=== PATIENT | female | born 1950 | race Caucasian/White ===

== ENCOUNTER → 2017-12-10 | Day surgery (SDC) | payer MEDICARE, BC ==
[~2017-12-10] MED LIST: Propofol 200 MG/20 ML SDV IV ONE
[2017-12-10] MEDS: Lactated Ringers 1,000 ML IV SCH (08:57)
--- NOTE | 2017-12-13 09:40 | OR ---
DATE OF OPERATION: 12/10/2017 PREOPERATIVE DIAGNOSIS: 1. NAUSEA AND VOMITING. 2. DIARRHEA. POSTOPERATIVE DIAGNOSIS: 1. NAUSEA AND VOMITING. 2. DIARRHEA. SURGEON: Harpreet Gilliam MD PROCEDURE: 1. EGD WITH VERNON AND POLYP REMOVAL X2. 2. FULL-LENGTH COLONOSCOPY WITH RANDOM BIOPSIES X5, POLYP REMOVAL X1. ANESTHESIA: SUSHI CHEF due to dementia. COMPLICATIONS: None. SPECIMEN: 1. Fundal polyps x2. 2. Antral VERNON. 3. Random colon biopsies x5. 4. Tubular adenoma, hepatic flexure. FINDINGS: 1. Essentially normal full-length EGD. 2. Gastric polyposis, mild, adenomatous in nature. 3. Full-length colonoscopy. 4. Tubular adenoma x1. 5. No signs of colitis or etiology of the patient's symptoms. RECOMMENDATIONS: Medical followup pending path reports. INDICATIONS: The patient has been having ongoing issues with loose stools, altered bowel habits, and some occasional nausea. We elected to proceed with upper and lower endoscopy. DESCRIPTION OF PROCEDURE: The patient was prepped and draped, placed in the left lateral decubitus position. A lubricated Olympus gastroscope was inserted over a bit, advanced to the cricopharyngeus area, and easily intubated into the esophagus. Esophageal lining was benign in its entire course. The Z-line was crisp and sharp around 39 cm. No distal esophagitis, stricturing, ulceration, or Moreno's changes seen. Scope advanced into the stomach through the pylorus and into the second portion of duodenum. This and the duodenal bulb were benign. The scope was brought back into the stomach and retroflexed. The upper fundus and cardia were unremarkable. In the mid portion of the fundus, the patient does have adenomatous polyps, multiple, probably a total of 10, typical in appearance, and 2 of them removed in the usual fashion without complication. Upon straightening, the rest of the fundus and antrum was evaluated. There were no signs of any peptic ulcer disease, worrisome masses, lesions or otherwise. VERNON test was obtained. Air was suctioned. Scope was removed without complication. A lubricated Olympus colonoscope was then inserted and with ease advanced to the cecum. We were able to directly visualize the ileocecal valve and the appendiceal orifice. The bowel prep was fine. Upon withdrawal, the cecum and the ascending colon were benign. There was a tubular adenoma, flat and sessile in the hepatic flexure region, removed with 3 forceps biopsies in its entirety. The rest of the colon showed no signs of any polyps, mass, ulceration, bleeding sites, or vascular abnormalities or signs of colitis. There were no diverticula. We did do random biopsies from the cecum to the rectum, totalling number 5. Retroflexion of the scope in the rectum showed no perianal lesions other than skin tags. Air was suctioned. Scope was removed without complication. JORY/TERENCE /[id number]
== END ==
LOC: CC.SDS 08:41
PROVIDERS: ATTEND Family Medicine
DX: R11.2 Nausea with vomiting, unspecified (principal); R19.7 Diarrhea, unspecified; D12.3 Benign neoplasm of transverse colon; K31.7 Polyp of stomach and duodenum; J30.9 Allergic rhinitis, unspecified; G30.9 Alzheimer's disease, unspecified; F02.80 Dementia in other diseases classified elsewhere, unspecified severity, without behavioral disturbance, psychotic disturbance, mood disturbance, and anxiety; E03.9 Hypothyroidism, unspecified; M54.16 Radiculopathy, lumbar region; L93.0 Discoid lupus erythematosus; Z79.899 Other long term (current) drug therapy
CPT/HCPCS: 87081; J2704; J7120

== ENCOUNTER 2018-04-21 15:28 | Observation (INO) | payer MEDICARE, BC ==
[2018-04-21] MEDS ORDERED: Ondansetron 4 MG Tab.DIS PO PRN (16:48)
[2018-04-21] MEDS ORDERED: Temazepam 15 MG Cap PO PRN (16:48)
[2018-04-21] MEDS ORDERED: Pantoprazole 40 MG Vial IVPUSH SCH (17:00)
[2018-04-21 17:16] LABS: CHLORIDE,CL 105 mEq/L (98-106); SODIUM,NA 141 mEq/L (136-145)
[2018-04-21] MEDS: Sodium Chloride 0.9% 1,000 ML IV SCH (17:26)
[2018-04-21] MEDS: cefTRIAXone 1 GM Vial IVPUSH SCH (17:27)
[2018-04-21] MEDS: Enoxaparin 30 MG/0.3 ML Syringe SUBCUT SCH (17:33)
[2018-04-21] MEDS: Acetaminophen 325 MG Tab PO PRN (19:38)
[2018-04-21] MEDS: Pantoprazole 40 MG Vial IVPUSH SCH (19:38)
[2018-04-21] MEDS: Memantine 10 MG Tab PO SCH (19:39)
[2018-04-22] MEDS ORDERED: Levothyroxine 100 MCG Tab PO SCH (08:00)
[2018-04-22] MEDS: Pantoprazole 40 MG Vial IVPUSH SCH ×2 (08:04→19:44)
[2018-04-22] MEDS: Sodium Chloride 0.9% 1,000 ML IV SCH ×2 (08:52→19:47)
[2018-04-22] MEDS ORDERED: DONEPEZIL 10 MG PO ONE (09:42)
[2018-04-22] MEDS: Memantine 10 MG Tab PO SCH ×2 (09:45→19:45)
[2018-04-22] MEDS: Acetaminophen 325 MG Tab PO PRN ×2 (10:33→14:30)
[2018-04-22] MEDS: Ibuprofen 200 MG Tab PO PRN ×2 (11:41→18:26)
--- NOTE | 2018-04-22 13:18 | PCM.PN ---
- General Info Date of Service: 04/22/18 Admission Dx/Problem (Free Text): Pyelonephritis Functional Status: Reports: Pain Controlled, Tolerating Diet, Ambulating - Review of Systems General: Reports: Other (Patient is disoriented to place and time. Denies any concerns but question if comprehends all questions asked. Smiles easily, cooperative. No pain. ROS essentially unobtainable) - Patient Data Vitals - Most Recent: Last Vital Signs Temp 100.7 F H 04/22/18 12:41 Pulse 62 04/22/18 07:44 Resp 20 04/22/18 07:44 BP 127/63 04/22/18 07:44 Pulse Ox 98 04/22/18 07:44 Weight - Most Recent: 161 lb 8 oz I&O - Last 24 Hours: Intake & Output 04/21/18 04/22/18 04/22/18 22:59 06:59 14:59 Intake Total 1000 Balance 1000 Lab Results Last 24 Hours: Laboratory Results - last 24 hr 04/21/18 04/21/18 04/21/18 Range/Units 16:27 16:27 17:38 WBC 4.7 L (5.0-10.0) 10^3/uL RBC 4.01 (4.00-5.50) 10^6/uL Hgb 12.1 (12.0-16.0) g/dL Hct 36.6 L (37.0-47.0) % MCV 91.3 (82.0-94.0) fL MCH 30.2 (27.0-32.0) pg MCHC 33.1 (33.0-38.0) g/dL RDW Coeff of Malini 11.5 (11.0-15.0) % Plt Count 181 (150-400) 10^3/uL Neut % (Auto) 64.9 (35-85) % Lymph % (Auto) 25.6 (10-55) % [place] % (Auto) 6.9 (0-16) % Eos % (Auto) 2.6 (0-5) % Baso % (Auto) 0 (0-3) % Neut # (Auto) 3.02 (1.80-7.00) 10^3/uL Lymph # (Auto) 1.19 (1.00-4.80) 10^3/uL [place] # (Auto) 0.32 (0.00-0.80) 10^3/uL Eos # (Auto) 0.12 (0.00-0.45) 10^3/uL Baso # (Auto) 0.00 10^3/uL Sodium 141 (136-145) mEq/L Potassium 4.2 (3.5-5.0) mEq/L Chloride 105 (98-106) mEq/L Carbon Dioxide 27 (21-32) mmol/L BUN 15 (7-18) mg/dL Creatinine 0.9 (0.6-1.0) mg/dL Est Cr Clr Drug Dosing 62.86 mL/min Estimated GFR (MDRD) > 60 (>=60) mL/min Glucose 94 (75-99) mg/dL Calcium 8.1 L (8.4-10.1) mg/dL Total Bilirubin 0.2 (0.0-1.0) mg/dL AST 14 L (15-37) U/L ALT 23 (12-78) U/L Alkaline Phosphatase 112 (46-116) U/L C-Reactive Protein 0.2 (0.2-0.8) mg/dL Total Protein 6.8 (6.4-8.2) g/dL Albumin 3.1 L (3.4-5.0) g/dL TSH, Ultra Sensitive 0.55 (0.36-5.60) uIU/mL Urine Color Yellow (YELLOW) Urine Appearance Clear (CLEAR) Urine pH 6.0 (4.5-8.0) Ur Specific [place] 1.010 (1.003-1.020) Urine Protein Negative (NEGATIVE) mg/dL Urine Glucose (UA) Negative (NEGATIVE) mg/dL Urine Ketones Negative (NEGATIVE) mg/dL Urine Occult Blood Negative (NEGATIVE) Urine Nitrite Negative (NEGATIVE) Urine Bilirubin Negative (NEGATIVE) Urine Urobilinogen 0.2 (0.2-1.0) EU/dL Ur Leukocyte Esterase Negative (NEGATIVE) Urine RBC Not seen (0-5) /HPF Urine WBC 0-5 (0-5) /HPF Ur Squamous Epith Cells Occasional H (NOT SEEN) /HPF Urine Bacteria Occasional H (NOT SEEN) /HPF José Results Last 24 Hours: Microbiology 04/21/18 17:38 Urine Culture - Preliminary Urine, Bladder Med Orders - Current: Current Medications Acetaminophen (Tylenol) 650 mg PO Q4H PRN PRN Reason: Pain (Mild 1-3)/fever Last Admin: 04/22/18 10:33 Dose: 650 mg Ceftriaxone Sodium (Rocephin) 1 gm IVPUSH Q24H [facility] Last Admin: 04/21/18 17:27 Dose: 1 gm Enoxaparin Sodium (Lovenox) 30 mg SUBCUT Q24H [facility] Last Admin: 04/21/18 17:33 Dose: 30 mg Sodium Chloride (Normal Saline) 1,000 mls @ 75 mls/hr IV ASDIRECTED [facility] Last Admin: 04/22/18 08:52 Dose: 75 mls/hr Ibuprofen (Motrin) 400 mg PO Q6H PRN PRN Reason: Pain/Fever Last Admin: 04/22/18 11:41 Dose: 400 mg Levothyroxine Sodium (Synthroid) 100 mcg PO DAILY [facility] Last Admin: 04/22/18 09:28 Dose: 100 mcg Memantine (Namenda) 10 mg PO BID [facility] Last Admin: 04/22/18 09:45 Dose: 10 mg Ondansetron HCl (Zofran Odt) 4 mg PO Q4H PRN PRN Reason: nausea, able to take PO Pantoprazole Sodium (Protonix Iv) 40 mg IVPUSH DAILY@0800,2000 [facility] Last Admin: 04/22/18 08:04 Dose: 40 mg Temazepam (Restoril) 15 mg PO BEDTIME PRN PRN Reason: Sleep Last Admin: 04/22/18 00:06 Dose: 15 mg Discontinued Medications Ptom Donepezil (10mg) 10 mg PO ONETIME ONE Stop: 04/22/18 09:43 Last Admin: 04/22/18 09:45 Dose: 10 mg Pantoprazole Sodium (Protonix Iv) 40 mg IVPUSH Q12H [facility] Last Admin: 04/21/18 17:30 Dose: 40 mg - Exam General: Alert, Oriented (person only) HEENT: Mucous Membr. Moist/[place] Neck: Supple Lungs: Clear to Auscultation, Normal Respiratory Effort Cardiovascular: Regular Rate, Regular Rhythm GI/Abdominal Exam: Normal Bowel Sounds, Soft, Non-Tender Extremities: Normal Inspection, No Pedal Edema Skin: Warm, Dry Neurological: No New Focal Deficit - Problem List & Annotations (1) Pyelonephritis SNOMED Code(s): 54119712 Code(s): N12 - TUBULO-INTERSTITIAL NEPHRITIS, NOT SPCF ACUTE OR CHRONIC Status: Ruled-out Priority: High Current Visit: Yes (2) Fever of unknown origin SNOMED Code(s): 0481685 Code(s): R50.9 - FEVER, UNSPECIFIED Status: Acute Priority: High Current Visit: Yes - Problem List Review Problem List Initiated/Reviewed/Updated: Yes - My Orders Last 24 Hours: My Active Orders 04/22/18 11:30 Ibuprofen [Motrin] 400 mg PO Q6H PRN - Assessment Assessment:: Pyelonephritis- ruled out Fever of unknown origin - Plan Plan:: Patient is resting comfortably this am. Denies any pain, nausea, shortness of breath or any concern but she is disoriented to person and place and question comprehension of all questions asked. She had a temp of 100 yesterday, low grade today. UA and labs essentially all negative on admit. She is eating well. Lung sounds are clear. Abdomen is nontender. Will repeat labs in am. IV fluids. If labs are all negative, may be discharged home if status unchanged.
[2018-04-22] MEDS: Enoxaparin 30 MG/0.3 ML Syringe SUBCUT SCH (17:15)
[2018-04-22] MEDS: cefTRIAXone 1 GM Vial IVPUSH SCH (17:15)
[2018-04-23] MEDS ORDERED: Levothyroxine 100 MCG Tab**OWN MED PO SCH (07:00)
[2018-04-23 07:29] LABS: CHLORIDE,CL 110 mEq/L (98-106); SODIUM,NA 145 mEq/L (136-145)
[2018-04-23] MEDS: Memantine 10 MG Tab PO SCH (07:38)
[2018-04-23] MEDS: Pantoprazole 40 MG Vial IVPUSH SCH (07:39)
--- NOTE | 2018-04-23 11:00 | PCM.DCSUM1 ---
Discharge Summary - Hospital Course HPI Initial Comments: This patient is a 67 year old female that was admitted to the hospital for fever of unknown origin. Patient has been fever free for 24 hours. The patient denies any complaints. She is alert. She is oriented to place and self, but not time. But this is her baseline norm. The patient denies cutler,dizziness, n, v, d, f , cp, soa, abd pain. She reports she has been eating and drinking well. The patient reports she is ready to go home. The patient reports her is at home and takes good care of her. office services assistant has seen the patient and discussed possible group home with the . The patient has refused group home care for the patient. Therefore, I will discharge the patient home. Her labs are unremarkable, she is baseline, ambulating without difficulty, eating, drinking, and has no complaints. Stable discharge. Modified La[place]ano Scale: No Symptoms at All Modified [place] Scale Score: 0 - Discharge Data Discharge Date: 04/23/18 Discharge Disposition: Home, Self-Care 01 Condition: Good - Patient Summary/Data Consults: Consultations 04/21/18 16:48 Consult to Case Management/Business Support [CONS] Routine - Patient Instructions Diet: Usual Diet as Tolerated Activity: As Tolerated Driving: Do Not Drive Showering/Bathing: May Shower Notify Provider of: Fever, Nausea and/or Vomiting - Discharge Plan *PRESCRIPTION DRUG MONITORING PROGRAM REVIEWED*: No *COPY OF PRESCRIPTION DRUG MONITORING REPORT IN PATIENT ELVIN: No Prescriptions/Med Rec: Colestipol [Colestipol HCl] 1 gm PO BID #60 tablet Donepezil HCl 10 mg PO QPM #30 tablet Home Medications: Home Meds Gluc HCl/Csa/Isabel Hy/Hyalur Ac [Glucosamine Chondroitin] 1 each PO BID 12/09/17 [History] Ibuprofen [Advil] 600 mg PO Q6H PRN 12/09/17 [History] Levothyroxine Sodium [Levoxyl] 100 mcg PO DAILY 12/09/17 [History] Meclizine HCl 25 mg PO Q8H PRN 12/09/17 [History] Multivitamin [Daily Leonor] 1 each PO DAILY 12/09/17 [History] SUMAtriptan succinate [Sumatriptan Succinate] 50 mg PO ASDIRECTED PRN 12/09/17 [ History] Cholestyramine/Aspartame [Cholestyramine Light Powder] 1 scoop PO DAILY [History] Colestipol HCl 1 gm PO BID 04/21/18 [History] Ondansetron [Zofran] 4 mg PO Q8H PRN 04/21/18 [History] Pantoprazole Sodium 40 mg PO DAILY 04/21/18 [History] Colestipol [Colestipol HCl] 1 gm PO BID #60 tablet 04/23/18 [Rx] Donepezil HCl 10 mg PO QPM #30 tablet 04/23/18 [Rx] Oxygen Therapy Mode: Room Air Patient Handouts: Fever, Adult, [id number] Referrals: Harpreet Gilliam MD [Primary Care Provider] - - Discharge Summary/Plan Comment DC Time >30 min.: No - General Info Date of Service: 04/23/18 Functional Status: Reports: Pain Controlled, Tolerating Diet, Ambulating, Urinating - Review of Systems General: Reports: No Symptoms HEENT: Reports: No Symptoms Pulmonary: Reports: No Symptoms Cardiovascular: Reports: No Symptoms Gastrointestinal: Reports: No Symptoms Genitourinary: Reports: No Symptoms Musculoskeletal: Reports: No Symptoms Skin: Reports: No Symptoms Neurological: Reports: No Symptoms Psychiatric: Reports: No Symptoms - Patient Data Vitals - Most Recent: Last Vital Signs Temp 98.0 F 04/23/18 07:56 Pulse 64 04/23/18 07:56 Resp 18 04/23/18 07:56 BP 149/67 H 04/23/18 07:56 Pulse Ox 99 04/23/18 07:56 Weight - Most Recent: 161 lb 8 oz I&O - Last 24 hours: Intake & Output 04/22/18 04/23/18 04/23/18 22:59 06:59 14:59 Intake Total 819 Balance 819 Lab Results - Last 24 hrs: Laboratory Results - last 24 hr 04/23/18 04/23/18 Range/Units 06:50 06:50 WBC 3.6 L (5.0-10.0) 10^3/uL RBC 3.75 L (4.00-5.50) 10^6/uL Hgb 11.4 L (12.0-16.0) g/dL Hct 34.1 L (37.0-47.0) % MCV 90.9 (82.0-94.0) fL MCH 30.4 (27.0-32.0) pg MCHC 33.4 (33.0-38.0) g/dL RDW Coeff of Malini 11.4 (11.0-15.0) % Plt Count 172 (150-400) 10^3/uL Neut % (Auto) 57.8 (35-85) % Lymph % (Auto) 31.1 (10-55) % [place] % (Auto) 6.1 (0-16) % Eos % (Auto) 4.7 (0-5) % Baso % (Auto) 0.3 (0-3) % Neut # (Auto) 2.08 (1.80-7.00) 10^3/uL Lymph # (Auto) 1.12 (1.00-4.80) 10^3/uL [place] # (Auto) 0.22 (0.00-0.80) 10^3/uL Eos # (Auto) 0.17 (0.00-0.45) 10^3/uL Baso # (Auto) 0.01 10^3/uL Sodium 145 (136-145) mEq/L Potassium 4.2 (3.5-5.0) mEq/L Chloride 110 H (98-106) mEq/L Carbon Dioxide 26 (21-32) mmol/L BUN 8 (7-18) mg/dL Creatinine 0.7 (0.6-1.0) mg/dL Est Cr Clr Drug Dosing 80.83 mL/min Estimated GFR (MDRD) > 60 (>=60) mL/min Glucose 93 (75-99) mg/dL Calcium 8.1 L (8.4-10.1) mg/dL DIVYA Results - Last 24 hrs: Microbiology 04/21/18 17:38 Urine Culture - Final Urine, Bladder 04/21/18 16:30 Aerobic Blood Culture - Preliminary Blood - Venous - Lab Draw NO GROWTH AFTER 1 DAY Anaerobic Blood Culture - Preliminary NO GROWTH AFTER 1 DAY 04/21/18 16:27 Aerobic Blood Culture - Preliminary Blood - Venous NO GROWTH AFTER 1 DAY Anaerobic Blood Culture - Preliminary NO GROWTH AFTER 1 DAY Med Orders - Current: Current Medications Acetaminophen (Tylenol) 650 mg PO Q4H PRN PRN Reason: Pain (Mild 1-3)/fever Last Admin: 04/22/18 14:30 Dose: 650 mg Ceftriaxone Sodium (Rocephin) 1 gm IVPUSH Q24H [facility] Last Admin: 04/22/18 17:15 Dose: 1 gm Enoxaparin Sodium (Lovenox) 30 mg SUBCUT Q24H [facility] Last Admin: 04/22/18 17:15 Dose: 30 mg Sodium Chloride (Normal Saline) 1,000 mls @ 75 mls/hr IV ASDIRECTED [facility] Last Admin: 04/22/18 19:47 Dose: 75 mls/hr Ibuprofen (Motrin) 400 mg PO Q6H PRN PRN Reason: Pain/Fever Last Admin: 04/22/18 18:26 Dose: 400 mg Levothyroxine Sodium (Synthroid) 100 mcg PO DAILY@0700 [facility] Last Admin: 04/23/18 06:24 Dose: 100 mcg Memantine (Namenda) 10 mg PO BID [facility] Last Admin: 04/23/18 07:38 Dose: 10 mg Ondansetron HCl (Zofran Odt) 4 mg PO Q4H PRN PRN Reason: nausea, able to take PO Pantoprazole Sodium (Protonix Iv) 40 mg IVPUSH DAILY@0800,2000 [facility] Last Admin: 04/23/18 07:39 Dose: 40 mg Temazepam (Restoril) 15 mg PO BEDTIME PRN PRN Reason: Sleep Last Admin: 04/22/18 00:06 Dose: 15 mg Discontinued Medications Levothyroxine Sodium (Synthroid) 100 mcg PO DAILY [facility] Last Admin: 04/22/18 09:28 Dose: 100 mcg Ptom Donepezil (10mg) 10 mg PO ONETIME ONE Stop: 04/22/18 09:43 Last Admin: 04/22/18 09:45 Dose: 10 mg Pantoprazole Sodium (Protonix Iv) 40 mg IVPUSH Q12H [facility] Last Admin: 04/21/18 17:30 Dose: 40 mg - Exam General: Reports: Alert, Cooperative, No Acute Distress Neck: Reports: Supple Lungs: Reports: Clear to Auscultation, Normal Respiratory Effort Cardiovascular: Reports: Regular Rate, Regular Rhythm GI/Abdominal Exam: Normal Bowel Sounds, Soft, Non-Tender, No Organomegaly, No Distention, No Abnormal Bruit, No Mass, Pelvis Stable (Female) Exam: Deferred Rectal (Female) Exam: Deferred Back Exam: Reports: Normal Inspection, Full Range of Motion Extremities: Normal Inspection, Normal Range of Motion, Non-Tender, No Pedal Edema, Normal Capillary Refill Skin: Reports: Warm, Dry, Intact Neurological: Reports: No New Focal Deficit Psy/Mental Status: Reports: Alert, Normal Affect, Normal Mood
== END 2018-04-23 13:50 | disposition home or self-care (01) ==
LOC: UNDOADMOB 15:28 → CC.MS 15:28
PROVIDERS: ADMIT Family Medicine; ATTEND Family Medicine
DX: R50.9 Fever, unspecified (principal); G30.9 Alzheimer's disease, unspecified; F02.80 Dementia in other diseases classified elsewhere, unspecified severity, without behavioral disturbance, psychotic disturbance, mood disturbance, and anxiety; E03.9 Hypothyroidism, unspecified; M32.9 Systemic lupus erythematosus, unspecified; Z79.890 Hormone replacement therapy; Z79.899 Other long term (current) drug therapy
CPT/HCPCS: 36415; 71046; 80048; 80053; 81001; 84443; 85025; 86140; 87040; 87086; 96361; 96372; 96374; 96375; 96376; A9270-GY; C9113; G0378; J0696; J1650; J7030

== ENCOUNTER 2018-05-25 14:05 | Inpatient (IN) | payer MEDICARE, BC ==
[2018-05-25 14:40] LABS: CHLORIDE,CL 102 mEq/L (98-106); SODIUM,NA 140 mEq/L (136-145)
[2018-05-25] MEDS ORDERED: Ondansetron 4 MG Tab.DIS PO PRN (16:34)
[2018-05-25] MEDS: Lactated Ringers 1,000 ML IV SCH (16:54)
[2018-05-25] MEDS: Enoxaparin 40 MG/0.4 ML Syringe SUBCUT SCH (16:57)
[2018-05-25] MEDS: Zolpidem 5 MG Tab PO PRN (21:44)
[2018-05-26] MEDS: Lactated Ringers 1,000 ML IV SCH ×2 (05:20→19:37)
[2018-05-26] MEDS: Levothyroxine 100 MCG Tab PO SCH (06:24)
--- NOTE | 2018-05-26 14:20 | PCM.PN ---
- General Info Date of Service: 05/26/18 Admission Dx/Problem (Free Text): Diarrhea Vulnerable Adult Functional Status: Reports: Pain Controlled, Tolerating Diet, Ambulating - Review of Systems General: Denies: Weakness, Fatigue HEENT: Reports: No Symptoms Pulmonary: Denies: Shortness of Breath, Cough Cardiovascular: Denies: Chest Pain, Edema, Lightheadedness Gastrointestinal: Denies: Abdominal Pain, Diarrhea, Nausea, Vomiting Genitourinary: Reports: No Symptoms Musculoskeletal: Reports: No Symptoms Skin: Reports: No Symptoms Neurological: Reports: Confusion - Patient Data Vitals - Most Recent: Last Vital Signs Temp 98.9 F 05/26/18 07:50 Pulse 69 05/26/18 07:50 Resp 20 05/26/18 07:50 BP 117/75 05/26/18 07:50 Pulse Ox 96 05/26/18 07:50 Weight - Most Recent: 155 lb 8 oz I&O - Last 24 Hours: Intake & Output 05/25/18 05/26/18 05/26/18 22:59 06:59 14:59 Intake Total 932 200 Balance 932 200 Lab Results Last 24 Hours: Laboratory Results - last 24 hr 05/25/18 05/25/18 05/25/18 Range/Units 14:10 14:10 14:10 WBC 4.4 L (5.0-10.0) 10^3/uL RBC 4.53 (4.00-5.50) 10^6/uL Hgb 13.5 (12.0-16.0) g/dL Hct 40.3 (37.0-47.0) % MCV 89.0 (82.0-94.0) fL MCH 29.8 (27.0-32.0) pg MCHC 33.5 (33.0-38.0) g/dL RDW Coeff of Malini 11.6 (11.0-15.0) % Plt Count 251 (150-400) 10^3/uL Neut % (Auto) 69.3 (35-85) % Lymph % (Auto) 22.7 (10-55) % [place] % (Auto) 4.8 (0-16) % Eos % (Auto) 3.0 (0-5) % Baso % (Auto) 0.2 (0-3) % Neut # (Auto) 3.02 (1.80-7.00) 10^3/uL Lymph # (Auto) 0.99 L (1.00-4.80) 10^3/uL [place] # (Auto) 0.21 (0.00-0.80) 10^3/uL Eos # (Auto) 0.13 (0.00-0.45) 10^3/uL Baso # (Auto) 0.01 10^3/uL Sodium 140 (136-145) mEq/L Potassium 4.0 (3.5-5.0) mEq/L Chloride 102 (98-106) mEq/L Carbon Dioxide 30 (21-32) mmol/L BUN 12 (7-18) mg/dL Creatinine 0.8 (0.6-1.0) mg/dL Est Cr Clr Drug Dosing TNP Estimated GFR (MDRD) > 60 (>=60) mL/min Glucose 86 (75-99) mg/dL Calcium 8.9 (8.4-10.1) mg/dL Free T4 1.1 (0.8-1.6) ng/dL TSH, Ultra Sensitive 2.12 (0.36-5.60) uIU/mL Urine Color Yellow (YELLOW) Urine Appearance Clear (CLEAR) Urine pH 6.5 (4.5-8.0) Ur Specific [place] 1.015 (1.003-1.020) Urine Protein Negative (NEGATIVE) mg/dL Urine Glucose (UA) Negative (NEGATIVE) mg/dL Urine Ketones Negative (NEGATIVE) mg/dL Urine Occult Blood Negative (NEGATIVE) Urine Nitrite Negative (NEGATIVE) Urine Bilirubin Negative (NEGATIVE) Urine Urobilinogen 0.2 (0.2-1.0) EU/dL Ur Leukocyte Esterase Trace H (NEGATIVE) Urine RBC Not seen (0-5) /HPF Urine WBC Not seen (0-5) /HPF Ur Squamous Epith Cells Moderate H (NOT SEEN) /HPF Med Orders - Current: Current Medications Enoxaparin Sodium (Lovenox) 40 mg SUBCUT Q24H [facility] Last Admin: 05/25/18 16:57 Dose: 40 mg Lactated Ringer's (Ringers, Lactated) 1,000 mls @ 75 mls/hr IV ASDIRECTED [facility] Last Admin: 05/26/18 05:20 Dose: 75 mls/hr Levothyroxine Sodium (Synthroid) 100 mcg PO ACBRK [facility] Last Admin: 05/26/18 06:24 Dose: 100 mcg Ondansetron HCl (Zofran Odt) 8 mg PO Q6H PRN PRN Reason: nausea, able to take PO Zolpidem Tartrate (Ambien) 5 mg PO BEDTIME PRN PRN Reason: Sleep Last Admin: 05/25/18 21:44 Dose: 5 mg - Exam General: Alert, Oriented (person only), Cooperative HEENT: Mucous Membr. Moist/[place] Neck: Supple Lungs: Clear to Auscultation, Normal Respiratory Effort Cardiovascular: Regular Rate, Regular Rhythm GI/Abdominal Exam: Normal Bowel Sounds, Soft, Non-Tender Extremities: Normal Inspection, No Pedal Edema Skin: Warm, Dry Neurological: No New Focal Deficit - Problem List & Annotations (1) Diarrhea SNOMED Code(s): 60941844 Code(s): R19.7 - DIARRHEA, UNSPECIFIED Status: Acute Priority: High Current Visit: Yes - Problem List Review Problem List Initiated/Reviewed/Updated: Yes - Assessment Assessment:: Diarrhea Vulnerable Adult - Plan Plan:: Patient stable. She denies any concerns today. Oriented to person only. Has not had any diarrhea stools since admission. No fevers. Labs on admit stable. Concerns about patient well being due to Alzheimers Dementia as , who is primary care provider, is also hospitalized. 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 Continue to monitor for diarrhea as had reports frequent loose stools daily. Collect studies as able.
[2018-05-26] MEDS: Enoxaparin 40 MG/0.4 ML Syringe SUBCUT SCH (16:46)
--- NOTE | 2018-05-26 17:20 | PCM.SN ---
- Free Text/Narrative Note: Called from nursing staff reporting stool is positive for C-diff. Will start 125 mg PO Vanco QID.
[2018-05-26] MEDS: Vancomycin 125 MG/2.5 ML Oral Solution 2.5 ML UD Cup PO SCH (19:37)
[2018-05-26] MEDS: Zolpidem 5 MG Tab PO PRN (21:37)
[2018-05-27] MEDS: Levothyroxine 100 MCG Tab PO SCH (06:38)
[2018-05-27] MEDS: Vancomycin 125 MG/2.5 ML Oral Solution 2.5 ML UD Cup PO SCH (08:02)
--- NOTE | 2018-05-29 20:48 | PCM.DCSUM1 ---
Discharge Summary - Hospital Course Free Text/Narrative:: Patient seen at clinic by Dr. Gilliam for ongoing concerns with diarrhea. relates that can go 24 hours without loose stools but then will have frequent watery stools, several a day, mostly in the mornings. She has Alzheimer's Dementia, cannot relate the concerns. Admitted for further work up for this as has been holding Aricept due to diarrhea. Collect stool studies. Vulnerable adult admitted as , who is primary care provider, being admitted today as well. Diagnosis: Stroke: No Modified Aurora Scale: No Symptoms at All Modified Aurora Scale Score: 0 - Discharge Data Discharge Date: 05/27/18 Discharge Disposition: Home, Self-Care 01 Condition: Fair - Discharge Diagnosis/Problem(s) (1) Diarrhea SNOMED Code(s): 61190970 ICD Code: R19.7 - DIARRHEA, UNSPECIFIED Status: Acute Priority: High - Patient Summary/Data Complications: none Consults: Consultations 05/25/18 16:34 Consult to Case Management/Artist'S Representative [CONS] Routine Hospital Course: Patient has been doing well during admission. Stool collected and was positive for c diff. Started on oral Vancomycin. She is disoriented to place and time, unchanged. Concerns have been discussed with in regards to her care at home as he is weak, has a difficult time caring for her. convention services manager have been involved. He does not feel at this point that she needs [place] [facility] [place] placement yet as he feels he can care for her. They have had adaptations made to their home by the [employer]. Will discharge home with . Continue on vancomycin for c diff. - Patient Instructions Diet: Usual Diet as Tolerated Activity: As Tolerated - Discharge Plan *PRESCRIPTION DRUG MONITORING PROGRAM REVIEWED*: No *COPY OF PRESCRIPTION DRUG MONITORING REPORT IN PATIENT ELVIN: No Prescriptions/Med Rec: Vancomycin [Vancocin 125 MG/2.5 ML Soln] 125 mg PO QID #40 dose Home Medications: Home Meds Ibuprofen [Advil] 600 mg PO Q6H PRN 12/09/17 [History] Levothyroxine Sodium [Levoxyl] 100 mcg PO DAILY 12/09/17 [History] Meclizine HCl 25 mg PO Q8H PRN 12/09/17 [History] SUMAtriptan succinate [Sumatriptan Succinate] 50 mg PO ASDIRECTED PRN 12/09/17 [ History] Memantine HCl 10 mg PO DAILY 05/25/18 [History] Vancomycin [Vancocin 125 MG/2.5 ML Soln] 125 mg PO QID #40 dose 05/27/18 [Rx] Referrals: Harpreet Gilliam MD [Primary Care Provider] - (Follow up with Dr. Gilliam in 2 weeks) - Discharge Summary/Plan Comment DC Time >30 min.: No - General Info Date of Service: 05/27/18 Admission Dx/Problem (Free Text: Diarrhea Vulnerable Adult Functional Status: Reports: Pain Controlled, Tolerating Diet, Ambulating - Review of Systems General: Denies: Fever, Weakness, Fatigue HEENT: Reports: No Symptoms Pulmonary: Denies: Shortness of Breath Cardiovascular: Denies: Chest Pain, Edema, Lightheadedness Gastrointestinal: Reports: Diarrhea. Denies: Abdominal Pain Musculoskeletal: Reports: No Symptoms Neurological: Reports: Confusion - Patient Data Vitals - Most Recent: Last Vital Signs Temp 97.5 F 05/27/18 07:44 Pulse 65 05/27/18 07:44 Resp 20 05/27/18 07:44 BP 113/66 05/27/18 07:44 Pulse Ox 95 05/27/18 07:44 Weight - Most Recent: 155 lb 8 oz DIVYA Results - Last 24 hrs: Microbiology 05/26/18 16:00 Stool Aerobic Culture - Preliminary Stool / Feces Med Orders - Current: Current Medications Discontinued Medications Enoxaparin Sodium (Lovenox) 40 mg SUBCUT Q24H [facility] Last Admin: 05/26/18 16:46 Dose: 40 mg Lactated Ringer's (Ringers, Lactated) 1,000 mls @ 75 mls/hr IV ASDIRECTED [facility] Last Admin: 05/26/18 19:37 Dose: 75 mls/hr Levothyroxine Sodium (Synthroid) 100 mcg PO ACBRK [facility] Last Admin: 05/27/18 06:38 Dose: 100 mcg Ondansetron HCl (Zofran Odt) 8 mg PO Q6H PRN PRN Reason: nausea, able to take PO Vancomycin HCl (Vancocin 125 Mg/2.5 Ml Soln) 125 mg PO QID [facility] Last Admin: 05/27/18 08:02 Dose: 125 mg Zolpidem Tartrate (Ambien) 5 mg PO BEDTIME PRN PRN Reason: Sleep Last Admin: 05/26/18 21:37 Dose: 5 mg - Exam General: Reports: Alert, Oriented (oriented to person only) HEENT: Reports: Mucous Membr. Moist/[place] Neck: Reports: Supple Lungs: Reports: Clear to Auscultation, Normal Respiratory Effort Cardiovascular: Reports: Regular Rate, Regular Rhythm GI/Abdominal Exam: Normal Bowel Sounds, Soft, Non-Tender Extremities: Normal Inspection, No Pedal Edema Skin: Reports: Warm, Dry Neurological: Reports: No New Focal Deficit
== END 2018-05-27 10:15 | disposition home or self-care (01) | DRG 373 ==
LOC: CC.LAB 14:05 → CC.MS 15:10 → UNDOADMIN 15:10 → CC.MS 16:34
PROVIDERS: ADMIT Family Medicine; ATTEND Family Medicine
DX: A04.72 Enterocolitis due to Clostridium difficile, not specified as recurrent (principal); G30.9 Alzheimer's disease, unspecified; F02.80 Dementia in other diseases classified elsewhere, unspecified severity, without behavioral disturbance, psychotic disturbance, mood disturbance, and anxiety; G43.909 Migraine, unspecified, not intractable, without status migrainosus; E03.9 Hypothyroidism, unspecified; D64.9 Anemia, unspecified; Z79.899 Other long term (current) drug therapy; Z86.010 Personal history of colon polyps; Z88.8 Allergy status to other drugs, medicaments and biological substances; Z87.39 Personal history of other diseases of the musculoskeletal system and connective tissue; Z90.710 Acquired absence of both cervix and uterus
CPT/HCPCS: 36415; 80048; 81001; 84439; 84443; 85025; 87045; 87046; 87328; 87329; 87493; 89055; A9270-GY; J1650; J7120

== ENCOUNTER 2018-08-15 20:36 | Emergency (ER) | payer MEDICARE, BC ==
[2018-08-15 21:08] LABS: CHLORIDE,CL 102 mEq/L (98-106); SODIUM,NA 141 mEq/L (136-145)
--- NOTE | 2018-08-15 21:10 | EDM.PDOC ---
ED HPI GENERAL MEDICAL PROBLEM - General Chief Complaint: Upper Extremity Injury/Pain Stated Complaint: hand wont straighten out Time Seen by Provider: 08/15/18 20:50 Source of Information: Reports: Patient, Family History Limitations: Reports: Altered Mental Status (patient has alzheimer's dementia) - History of Present Illness INITIAL COMMENTS - FREE TEXT/NARRATIVE: Patient presents to ER with complaints of hand pain and stiffness. Initially tells this provider it is her left hand and opens and closes her hand, then tells me it's her right. relates that he got concerned at home as she had told him that she couldn't straighten her right hand. Patient states her hand aches. Has not taken any meds for this. He relates that she does open and close the dog door all day and sometimes the knob is hard to turn but he doesn't know of any injury. She denies any chest pain, shortness of breath. She has weakness on her left side from a defect, that is unchanged tonight. Has not been running a fever. No swelling or bruising noted per . Onset: Today, Sudden Duration: Hour(s): Location: Reports: Upper Extremity, Left Quality: Reports: Ache Severity: Mild Associated Symptoms: Reports: Confusion. Denies: Chest Pain, Fever/Chills, Loss of Appetite, Nausea/Vomiting, Shortness of Breath - Related Data Allergies Allergy/AdvReac Type Severity Reaction Status Date / Time rivastigmine [From Exelon] Allergy Other Verified 08/15/18 20:42 Home Meds: Home Meds Ibuprofen [Advil] 600 mg PO Q6H PRN 12/09/17 [History] Levothyroxine Sodium [Levoxyl] 100 mcg PO DAILY 12/09/17 [History] Meclizine HCl 25 mg PO Q8H PRN 12/09/17 [History] SUMAtriptan succinate [Sumatriptan Succinate] 50 mg PO ASDIRECTED PRN 12/09/17 [ History] Memantine HCl 10 mg PO DAILY 05/25/18 [History] Past Medical History Gastrointestinal History: Reports: Chronic Diarrhea Musculoskeletal History: Reports: Back Pain, Chronic Neurological History: Reports: Alzheimers Disease, Migraines Endocrine/Metabolic History: Reports: Hypothyroidism Hematologic History: Reports: Anemia Immunologic History: Reports: SLE - Infectious Disease History Infectious Disease History: Reports: C-Difficile - Past Surgical History GI Surgical History: Reports: Colonoscopy Female Surgical History: Reports: Hysterectomy Endocrine Surgical History: Reports: Thyroidectomy Social & Family History - Family History Family Medical History: Noncontributory - Tobacco Use Smoking Status *Q: Never Smoker - Recreational Drug Use Recreational Drug Use: No Review of Systems - Review of Systems Review Of Systems: See Below Constitutional: Denies: Chills, Fever, Weakness Eyes: Reports: No Symptoms Ears: Reports: No Symptoms Nose: Denies: Congestion Mouth/Throat: Denies: Pain Respiratory: Denies: Shortness of Breath, Cough Cardiovascular: Denies: Chest Pain GI/Abdominal: Denies: Abdominal Pain, Nausea, Vomiting Genitourinary: Reports: No Symptoms Musculoskeletal: Reports: Hand Pain Skin: Reports: No Symptoms Neurological: Reports: Confusion ED EXAM, GENERAL - Physical Exam Exam: See Below Exam Limited By: Altered Mental Status (patient has alzheimer's dementia) General Appearance: Alert, WD/WN, No Apparent Distress, Other (patient unkempt, has sweatshirt on backwards. ) Ears: Normal External Exam, Normal TMs Nose: Normal Inspection, Normal Mucosa, No Blood Throat/Mouth: Normal Inspection, Normal Oropharynx Head: Normocephalic Neck: Normal Inspection, Supple, Non-Tender Respiratory/Chest: No Respiratory Distress, Lungs Clear, Normal Breath Sounds Cardiovascular: Regular Rate, Rhythm GI/Abdominal: Normal Bowel Sounds, Soft, Non-Tender Extremities: Normal Inspection, Other (patient's hand is without deformity, strength is equal compared to left. Good range of motion with finger. Able to fully extend fingers and make a fist without difficult. Good range of motion with her arm. Has poor abduction with the left but chronic deficit) Neurological: Alert. No: Oriented Skin Exam: Warm, Dry Course - Vital Signs Last Recorded V/S: Last Vital Signs Temp 98 F 08/15/18 20:36 Pulse 88 08/15/18 20:36 Resp 18 08/15/18 20:36 BP 152/98 H 08/15/18 20:36 Pulse Ox 98 08/15/18 20:36 - Orders/Labs/Meds Labs: Laboratory Tests 08/15/18 Range/Units 20:55 Sodium 141 (136-145) mEq/L Potassium 4.4 (3.5-5.0) mEq/L Chloride 102 (98-106) mEq/L Carbon Dioxide 29 (21-32) mmol/L BUN 14 D (7-18) mg/dL Creatinine 0.8 (0.6-1.0) mg/dL Est Cr Clr Drug Dosing 67.27 mL/min Estimated GFR (MDRD) > 60 (>=60) mL/min Glucose 96 (75-99) mg/dL Calcium 8.9 (8.4-10.1) mg/dL Magnesium 2.0 (1.8-2.4) mg/dL - Re-Assessments/Exams Free Text/Narrative Re-Assessment/Exam: 08/15/18 21:12 Labs are normal. Exam normal Departure - Departure Time of Disposition: 21:13 Disposition: Home, Self-Care 01 Condition: Good Clinical Impression: Muscle spasm - Discharge Information *PRESCRIPTION DRUG MONITORING PROGRAM REVIEWED*: No *COPY OF PRESCRIPTION DRUG MONITORING REPORT IN PATIENT ELVIN: No Referrals: Harpreet Gilliam MD [Primary Care Provider] - Forms: ED Department Discharge Additional Instructions: 1. Rest 2. Tylenol or ibuprofen for discomfort 3. Return to see Dr. Gilliam if muscle spasm becomes recurring concern.
== END 2018-08-15 21:21 | disposition home or self-care (01) ==
LOC: CC.ED 20:36
DX: M62.838 Other muscle spasm (principal); E03.9 Hypothyroidism, unspecified; Z88.8 Allergy status to other drugs, medicaments and biological substances; Z79.899 Other long term (current) drug therapy
CPT/HCPCS: 36415; 80048; 83735; 99283

== ENCOUNTER 2019-03-30 16:46 | Inpatient (IN) | payer MEDICARE, BC ==
[2019-03-30 17:32] LABS: CHLORIDE,CL 100 mEq/L (98-106); SODIUM,NA 138 mEq/L (136-145)
[2019-03-30] MEDS ORDERED: Albuterol/Ipratropium 3.0-0.5 MG/3 ML Neb Soln NEB PRN (17:50)
[2019-03-30] MEDS ORDERED: Ibuprofen 200 MG Tab PO PRN (17:54)
[2019-03-30] MEDS: Acetaminophen 325 MG Tab PO PRN (18:14)
[2019-03-30] MEDS: Sodium Chloride 0.9% 1,000 ML IV SCH (18:16)
[2019-03-30] MEDS: Oseltamivir 75 MG Cap PO SCH (20:00)
[2019-03-31] MEDS: Sodium Chloride 0.9% 1,000 ML IV SCH (02:06)
[2019-03-31] MEDS: Oseltamivir 75 MG Cap PO SCH ×2 (07:45→19:32)
[2019-03-31] MEDS: Memantine 10 MG Tab PO SCH (07:45)
[2019-03-31] MEDS: Levothyroxine 100 MCG Tab PO SCH (07:46)
[2019-03-31 07:47] LABS: CHLORIDE,CL 103 mEq/L (98-106); SODIUM,NA 137 mEq/L (136-145)
--- NOTE | 2019-03-31 09:04 | PCM.PN ---
- General Info Date of Service: 03/31/19 Admission Dx/Problem (Free Text): Influenza B Functional Status: Reports: Tolerating Diet, Ambulating - Review of Systems General: Reports: Fever, Weakness, Fatigue, Other (no other ROS available, patient only answers yes or no but no appropriate due to dementia) - Patient Data Vitals - Most Recent: Last Vital Signs Temp 100.1 F 03/31/19 08:00 Pulse 102 H 03/31/19 08:00 Resp 20 03/31/19 08:00 BP 154/87 H 03/31/19 08:00 Pulse Ox 95 03/31/19 08:00 Weight - Most Recent: 169 lb 8 oz I&O - Last 24 Hours: Intake & Output 03/30/19 03/31/19 03/31/19 22:59 06:59 14:59 Intake Total 979 Balance 979 Lab Results Last 24 Hours: Laboratory Results - last 24 hr 03/30/19 03/30/19 03/30/19 Range/Units 16:51 16:51 16:51 WBC 7.8 (5.0-10.0) 10^3/uL RBC 3.80 L (4.00-5.50) 10^6/uL Hgb 11.1 L (12.0-16.0) g/dL Hct 34.4 L (37.0-47.0) % MCV 90.5 (82.0-94.0) fL MCH 29.2 (27.0-32.0) pg MCHC 32.3 L (33.0-38.0) g/dL RDW Coeff of Malini 13.4 (11.0-15.0) % Plt Count 270 (150-400) 10^3/uL Add Manual Diff Yes Neutrophils % (Manual) 89 H (35-85) % Band Neutrophils % 1 (0-5) % Lymphocytes % (Manual) 7 L (21-55) % Monocytes % (Manual) 2 (2-12) % Eosinophils % (Manual) 1 (0-5) % Sodium 138 (136-145) mEq/L Potassium 3.7 (3.5-5.0) mEq/L Chloride 100 (98-106) mEq/L Carbon Dioxide 29 (21-32) mmol/L BUN 11 (7-18) mg/dL Creatinine 0.8 (0.6-1.0) mg/dL Est Cr Clr Drug Dosing TNP Estimated GFR (MDRD) > 60 (>=60) mL/min Glucose 88 (75-99) mg/dL Lactic Acid 0.6 (0.4-2.0) mmol/L Calcium 8.2 L (8.4-10.1) mg/dL Total Bilirubin 0.4 (0.0-1.0) mg/dL AST 88 H (15-37) U/L ALT 49 (12-78) U/L Alkaline Phosphatase 295 H (46-116) U/L C-Reactive Protein 8.3 H (0.2-0.8) mg/dL Total Protein 7.7 (6.4-8.2) g/dL Albumin 2.7 L (3.4-5.0) g/dL 03/31/19 03/31/19 Range/Units 06:55 06:55 WBC 5.9 (5.0-10.0) 10^3/uL RBC 3.91 L (4.00-5.50) 10^6/uL Hgb 11.5 L (12.0-16.0) g/dL Hct 35.1 L (37.0-47.0) % MCV 89.8 (82.0-94.0) fL MCH 29.4 (27.0-32.0) pg MCHC 32.8 L (33.0-38.0) g/dL RDW Coeff of Malini 13.1 (11.0-15.0) % Plt Count 270 (150-400) 10^3/uL Add Manual Diff Yes Neutrophils % (Manual) 83 (35-85) % Band Neutrophils % 7 H (0-5) % Lymphocytes % (Manual) 7 L (21-55) % Monocytes % (Manual) 3 (2-12) % Eosinophils % (Manual) (0-5) % Sodium 137 (136-145) mEq/L Potassium 3.6 (3.5-5.0) mEq/L Chloride 103 (98-106) mEq/L Carbon Dioxide 26 (21-32) mmol/L BUN 8 (7-18) mg/dL Creatinine 0.7 (0.6-1.0) mg/dL Est Cr Clr Drug Dosing 74.01 Estimated GFR (MDRD) > 60 (>=60) mL/min Glucose 90 (75-99) mg/dL Lactic Acid (0.4-2.0) mmol/L Calcium 8.0 L (8.4-10.1) mg/dL Total Bilirubin (0.0-1.0) mg/dL AST (15-37) U/L ALT (12-78) U/L Alkaline Phosphatase (46-116) U/L C-Reactive Protein 7.4 H (0.2-0.8) mg/dL Total Protein (6.4-8.2) g/dL Albumin (3.4-5.0) g/dL José Results Last 24 Hours: Microbiology 03/30/19 16:51 Influenza Type A Antigen Screen - Final Nasopharyngeal Swab NEGATIVE INFLUENZA A VIRUS AG REFERENCE RANGE: NEGATIVE Influenza Type B Antigen Screen - Final Positive Influenza B Ag Med Orders - Current: Current Medications Acetaminophen (Tylenol) 650 mg PO Q4H PRN PRN Reason: Pain (Mild 1-3)/fever Last Admin: 03/30/19 18:14 Dose: 650 mg Albuterol/Ipratropium (Duoneb 3.0-0.5 Mg/3 Ml) 3 ml NEB Q4H PRN PRN Reason: Shortness Of Breath/wheezing Ceftriaxone Sodium (Rocephin) 1 gm IVPUSH Q24H [facility] Sodium Chloride (Normal Saline) 1,000 mls @ 125 mls/hr IV ASDIRECTED [facility] Last Admin: 03/31/19 02:06 Dose: 125 mls/hr Azithromycin 500 mg/ Sodium (Chloride) 250 mls @ 250 mls/hr IV Q24H [facility] Ibuprofen (Motrin) 600 mg PO Q6H PRN PRN Reason: Pain/Fever Levothyroxine Sodium (Synthroid) 100 mcg PO DAILY [facility] Last Admin: 03/31/19 07:46 Dose: 100 mcg Memantine (Namenda) 10 mg PO DAILY [facility] Last Admin: 03/31/19 07:45 Dose: 10 mg Oseltamivir Phosphate (Tamiflu) 75 mg PO BID [facility] Last Admin: 03/31/19 07:45 Dose: 75 mg - Exam General: Alert, Cooperative, Other (very restless). No: Oriented HEENT: Mucous Membr. Moist/[place] Neck: Supple Lungs: Clear to Auscultation, Normal Respiratory Effort Cardiovascular: Regular Rate, Regular Rhythm GI/Abdominal Exam: Normal Bowel Sounds, Soft, Non-Tender Extremities: Pedal Edema (2-3+ edema in legs) Skin: Warm, Dry Neurological: No New Focal Deficit Sepsis Event Note - Evaluation Sepsis Screening Result: Sepsis Risk - Focused Exam Vital Signs: Vital Signs Temp Pulse Resp BP Pulse Ox 03/31/19 08:00 100.1 F 102 H 20 154/87 H 95 03/31/19 04:00 99.9 F 81 16 143/72 H 95 03/31/19 00:00 99.6 F 79 16 118/70 95 Date Exam was Performed: 04/01/19 Time Exam was Performed: 09:44 - Problem List & Annotations (1) Influenza B SNOMED Code(s): 25041183 Code(s): J10.1 - FLU DUE TO OTH IDENT INFLUENZA VIRUS W OTH RESP MANIFEST Status: Acute Priority: High Current Visit: Yes (2) RLL pneumonia SNOMED Code(s): 617105876 Code(s): J18.9 - PNEUMONIA, UNSPECIFIED ORGANISM Status: Acute Priority: High Current Visit: Yes Qualifiers: Pneumonia type: due to unspecified organism Qualified Code(s): J18.9 - Pneumonia, unspecified organism - Problem List Review Problem List Initiated/Reviewed/Updated: Yes - My Orders Last 24 Hours: My Active Orders 03/31/19 09:00 Azithromycin [Zithromax] 500 mg Sodium Chloride 0.9% [Normal Saline] 250 ml IV Q24H cefTRIAXone [Rocephin] 1 gm IVPUSH Q24H - Assessment Assessment:: Influenza B RLL pneumonia - Plan Plan:: Patient is restless, hasn't slept all night due to dementia. Relatively nonverbal, does say yes and no, few other words but inappropriate for question. Wanders around room, halls. Looks tired, pale. Lung sounds are clear. Temp 101.3 last evening, low grade this am. Does not appear short of breath when up. Labs this am are stable. WBC 5.9, CRP 7.4. Chest xray report noted to show developing infiltrate in left lower lobe. Will continue Tamiflu, cover with Zithromax and Rocephin for infiltrate in event bacterial. Ativan as needed for restlessness. Repeat labs in am.
[2019-03-31] MEDS: Azithromycin 500 MG in Sodium Chloride 0.9% 250 ML IV SCH (09:20)
[2019-03-31] MEDS: cefTRIAXone 1 GM Vial IVPUSH SCH (10:43)
[2019-03-31] MEDS: Enoxaparin 40 MG/0.4 ML Syringe SUBCUT SCH (19:04)
[2019-03-31] MEDS: QUEtiapine 25 MG Tab PO SCH (19:32)
[2019-03-31] MEDS: LORazepam 0.5 MG Tab PO PRN (19:34)
[2019-03-31] MEDS: Acetaminophen 325 MG Tab PO PRN (19:42)
[2019-03-31] MEDS ORDERED: Oseltamivir 6 MG/ML Susp 60 ML Bot PO SCH ×2 (20:00)
[2019-04-01] MEDS: LORazepam 0.5 MG Tab PO PRN (03:26)
[2019-04-01] MEDS: QUEtiapine 25 MG Tab PO SCH ×2 (07:29→19:39)
[2019-04-01] MEDS: Oseltamivir 75 MG Cap PO SCH ×2 (07:29→19:39)
[2019-04-01] MEDS: Levothyroxine 100 MCG Tab PO SCH (07:29)
[2019-04-01] MEDS: Memantine 10 MG Tab PO SCH (07:29)
[2019-04-01 07:59] LABS: CHLORIDE,CL 107 mEq/L (98-106); SODIUM,NA 142 mEq/L (136-145)
[2019-04-01] MEDS: cefTRIAXone 1 GM Vial IVPUSH SCH (09:25)
[2019-04-01] MEDS: Azithromycin 500 MG in Sodium Chloride 0.9% 250 ML IV SCH (09:26)
--- NOTE | 2019-04-01 14:56 | PCM.PN ---
- General Info Date of Service: 04/01/19 Functional Status: Reports: Pain Controlled, Tolerating Diet, Ambulating, Urinating - Review of Systems General: Reports: No Symptoms. Denies: Fever HEENT: Reports: Post Nasal Drip, Rhinitis Pulmonary: Reports: Cough (INFREQUENT). Denies: Shortness of Breath, Sputum, Wheezing Cardiovascular: Reports: No Symptoms Gastrointestinal: Reports: No Symptoms Genitourinary: Reports: No Symptoms Musculoskeletal: Reports: No Symptoms Skin: Reports: No Symptoms Neurological: Reports: No Symptoms (NOT NEW) Psychiatric: Reports: No Symptoms - Patient Data Vitals - Most Recent: Last Vital Signs Temp 97.7 F 04/01/19 12:00 Pulse 72 04/01/19 12:00 Resp 18 04/01/19 12:00 BP 134/65 04/01/19 12:00 Pulse Ox 96 04/01/19 12:00 Weight - Most Recent: 169 lb 8 oz I&O - Last 24 Hours: Intake & Output 03/31/19 04/01/19 04/01/19 22:59 06:59 14:59 Output Total 100 Balance -100 Lab Results Last 24 Hours: Laboratory Results - last 24 hr 04/01/19 04/01/19 Range/Units 07:30 07:30 WBC 6.1 (5.0-10.0) 10^3/uL RBC 4.17 (4.00-5.50) 10^6/uL Hgb 12.1 (12.0-16.0) g/dL Hct 37.1 (37.0-47.0) % MCV 89.0 (82.0-94.0) fL MCH 29.0 (27.0-32.0) pg MCHC 32.6 L (33.0-38.0) g/dL RDW Coeff of Malini 13.2 (11.0-15.0) % Plt Count 311 (150-400) 10^3/uL Neut % (Auto) 63.7 (35-85) % Lymph % (Auto) 22.0 (10-55) % Graves % (Auto) 6.7 (0-16) % Eos % (Auto) 7.6 H (0-5) % Baso % (Auto) 0 (0-3) % Neut # (Auto) 3.88 (1.80-7.00) 10^3/uL Lymph # (Auto) 1.34 (1.00-4.80) 10^3/uL Graves # (Auto) 0.41 (0.00-0.80) 10^3/uL Eos # (Auto) 0.46 H (0.00-0.45) 10^3/uL Baso # (Auto) 0.00 10^3/uL Sodium 142 (136-145) mEq/L Potassium 3.5 (3.5-5.0) mEq/L Chloride 107 H (98-106) mEq/L Carbon Dioxide 29 (21-32) mmol/L BUN 9 (7-18) mg/dL Creatinine 0.7 (0.6-1.0) mg/dL Est Cr Clr Drug Dosing 74.01 mL/min Estimated GFR (MDRD) > 60 (>=60) mL/min Glucose 91 (75-99) mg/dL Calcium 8.2 L (8.4-10.1) mg/dL C-Reactive Protein 7.2 H (0.2-0.8) mg/dL José Results Last 24 Hours: Microbiology 03/30/19 17:12 Aerobic Blood Culture - Preliminary Blood NO GROWTH AFTER 1 DAY Anaerobic Blood Culture - Preliminary NO GROWTH AFTER 1 DAY 03/30/19 16:50 Aerobic Blood Culture - Preliminary Blood NO GROWTH AFTER 1 DAY Anaerobic Blood Culture - Preliminary NO GROWTH AFTER 1 DAY Med Orders - Current: Current Medications Acetaminophen (Tylenol) 650 mg PO Q4H PRN PRN Reason: Pain (Mild 1-3)/fever Last Admin: 03/31/19 19:42 Dose: 650 mg Albuterol/Ipratropium (Duoneb 3.0-0.5 Mg/3 Ml) 3 ml NEB Q4H PRN PRN Reason: Shortness Of Breath/wheezing Ceftriaxone Sodium (Rocephin) 1 gm IVPUSH Q24H [facility] Last Admin: 04/01/19 09:25 Dose: 1 gm Enoxaparin Sodium (Lovenox) 40 mg SUBCUT Q24H [facility] Last Admin: 03/31/19 19:04 Dose: 40 mg Azithromycin 500 mg/ Sodium (Chloride) 250 mls @ 250 mls/hr IV Q24H [facility] Last Admin: 04/01/19 09:26 Dose: 250 mls/hr Ibuprofen (Motrin) 600 mg PO Q6H PRN PRN Reason: Pain/Fever Levothyroxine Sodium (Synthroid) 100 mcg PO DAILY [facility] Last Admin: 04/01/19 07:29 Dose: 100 mcg Lorazepam (Ativan) 0.5 - 1 mg PO Q6H PRN PRN Reason: Anxiety Last Admin: 04/01/19 03:26 Dose: 0.5 mg Memantine (Namenda) 10 mg PO DAILY [facility] Last Admin: 04/01/19 07:29 Dose: 10 mg Oseltamivir Phosphate (Tamiflu) 75 mg PO BID [facility] Stop: 04/04/19 08:01 Last Admin: 04/01/19 07:29 Dose: 75 mg Quetiapine Fumarate (Seroquel) 25 mg PO BID [facility] Last Admin: 04/01/19 07:29 Dose: 25 mg Discontinued Medications Sodium Chloride (Normal Saline) 1,000 mls @ 125 mls/hr IV ASDIRECTED [facility] Last Admin: 03/31/19 02:06 Dose: 125 mls/hr Oseltamivir Phosphate (Tamiflu) 75 mg PO BID [facility] Last Admin: 03/31/19 07:45 Dose: 75 mg Oseltamivir Phosphate (Tamiflu) 75 mg PO BID [facility] Stop: 04/04/19 08:01 - Exam General: Alert, Cooperative Neck: Supple, No JVD Lungs: Clear to Auscultation, Normal Respiratory Effort Cardiovascular: Regular Rate, Regular Rhythm GI/Abdominal Exam: Normal Bowel Sounds, Soft, Non-Tender, No Organomegaly Back Exam: Normal Inspection, Full Range of Motion Extremities: Normal Range of Motion, Non-Tender, Normal Capillary Refill, Pedal Edema (+1 BLE) Peripheral Pulses: 2+: Radial (L), Radial (R), Posterior Tibial (L), Posterior Tibial (R) Skin: Warm, Dry, Intact Neurological: No New Focal Deficit Psy/Mental Status: Alert, Normal Affect, Normal Mood, Other (oriented to "[place]" for location. But she says her name is [place] and will not answer year question. Baseline, severe dementia. ) Sepsis Event Note - Evaluation Sepsis Screening Result: Sepsis Risk - Focused Exam Vital Signs: Vital Signs Temp Pulse Resp BP Pulse Ox 04/01/19 12:00 97.7 F 72 18 134/65 96 04/01/19 07:46 98.1 F 92 18 132/71 97 04/01/19 03:33 97.9 F 69 20 121/75 97 Date Exam was Performed: 04/01/19 Time Exam was Performed: 14:50 - Problem List Review Problem List Initiated/Reviewed/Updated: Yes - My Orders Last 24 Hours: My Active Orders 03/31/19 18:30 Enoxaparin [Lovenox] 40 mg SUBCUT Q24H 03/31/19 20:00 QUEtiapine [SEROqueL] 25 mg PO BID 04/02/19 05:00 BASIC METABOLIC PANEL,BMP [CHEM] Routine CBC WITH AUTO DIFF [HEME] Routine CRP [C-REACTIVE PROTEIN] [CHEM] Routine - Assessment Assessment:: Influenza B RLL pneumonia - Plan Plan:: Patient is restless, hasn't slept all night due to dementia. Relatively nonverbal, does say yes and no, few other words but inappropriate for question. Wanders around room, halls. Looks tired, pale. Lung sounds are clear. Temp 101.3 last evening, low grade this am. Does not appear short of breath when up. Labs this am are stable. WBC 5.9, CRP 7.4. Chest xray report noted to show developing infiltrate in left lower lobe. Will continue Tamiflu, cover with Zithromax and Rocephin for infiltrate in event bacterial. Ativan as needed for restlessness. Repeat labs in am. 04/01/19 0900 Patient was admitted for influenza and possible infiltrate. Patient yesterday was up ambulating the halls. RN reported would not sleep and kept ambulating the halls. I ordered Seroquel for this patient. Today the patient is sitting in the chair eating breakfast without issue. She has been much more calm today per RN. The patient is verbal and does answer some questions. She does have severe dementia and this is unchanged. The patient has no complaints. Labs yesterday were wbc 5.9, ch 103, calcium 8.0, ast 88, crp 7.4 down from 8.3. Today labs are wbc 6.1, ch 107, calcium 8.2, crp 7.2. Overall, patient looks good. Will continue abx tx and tamiflu today. Will continue the Seroquil. If patient labs are unremarkable again tomorrow and patient continues fever free, may discharge home tomorrow if feels fine taking her home. It has been reported they have discussed with about senior care placement, but he refuses at this time. [employer] services supervisor reports discharge patient home when medically stable to do so.
[2019-04-01] MEDS: Enoxaparin 40 MG/0.4 ML Syringe SUBCUT SCH (17:37)
[2019-04-02 07:32] LABS: CHLORIDE,CL 108 mEq/L (98-106); SODIUM,NA 143 mEq/L (136-145)
[2019-04-02] MEDS: Memantine 10 MG Tab PO SCH (08:52)
[2019-04-02] MEDS: cefTRIAXone 1 GM Vial IVPUSH SCH (08:52)
[2019-04-02] MEDS: QUEtiapine 25 MG Tab PO SCH (08:52)
[2019-04-02] MEDS: Levothyroxine 100 MCG Tab PO SCH (08:52)
[2019-04-02] MEDS: Oseltamivir 75 MG Cap PO SCH (08:52)
[2019-04-02] MEDS: Azithromycin 500 MG in Sodium Chloride 0.9% 250 ML IV SCH (08:53)
--- NOTE | 2019-04-02 13:39 | PCM.DCSUM1 ---
Discharge Summary - Hospital Course HPI Initial Comments: This patient is a 68 year old female that was admitted for influenza and pneumonia. Patient labs are unremarkable. HGb today is a little low, but has been in past. Vital signs stable. No fever for greater than 48 hours. Patient has been sitting in chair, sitting and laying in bed, and walking the halls without difficulty. Patient has been verbal. Patient has no complaints. Discussed with today about NH placement, vs continued admit, vs going home today. The reports he does not want her to go to NH and he would like her at home today. I will discharge this patient. - Discharge Data Discharge Date: 04/02/19 Discharge Disposition: Home, Self-Care 01 Condition: Good - Referral to Home Health Primary Care Physician: Mateusz Huber PA-C - Patient Instructions Diet: Usual Diet as Tolerated Activity: As Tolerated Driving: Do Not Drive Showering/Bathing: May Shower Notify Provider of: Fever, Nausea and/or Vomiting Other/Special Instructions: Followup with primary care provider in 5-7 days. Return for fever, shortness of breath, or any other concerns. Take medications as directed: These are ready at pharmacy tomorrow - Discharge Plan *PRESCRIPTION DRUG MONITORING PROGRAM REVIEWED*: Not Applicable *COPY OF PRESCRIPTION DRUG MONITORING REPORT IN PATIENT ELVIN: Not Applicable Prescriptions/Med Rec: Azithromycin [Zithromax] 250 mg PO DAILY 2 Days #2 tab Oseltamivir [Tamiflu] 75 mg PO BID #3 cap QUEtiapine [SEROquel] 25 mg PO BID #60 tablet Home Medications: Home Meds Ibuprofen [Advil] 600 mg PO Q6H PRN 12/09/17 [History] Levothyroxine Sodium [Levoxyl] 100 mcg PO DAILY 12/09/17 [History] Memantine HCl 10 mg PO DAILY 05/25/18 [History] Azithromycin [Zithromax] 250 mg PO DAILY 2 Days #2 tab 04/02/19 [Rx] Oseltamivir [Tamiflu] 75 mg PO BID #3 cap 04/02/19 [Rx] QUEtiapine [SEROquel] 25 mg PO BID #60 tablet 04/02/19 [Rx] Oxygen Therapy Mode: Room Air Patient Handouts: Influenza, Adult, [id number], Community-Acquired Pneumonia , Adult, [id number] - Discharge Summary/Plan Comment DC Time >30 min.: No - General Info Functional Status: Reports: Pain Controlled, Tolerating Diet, Ambulating, Urinating - Review of Systems General: Reports: No Symptoms. Denies: Fever HEENT: Reports: No Symptoms Pulmonary: Reports: Cough. Denies: Shortness of Breath, Sputum, Wheezing Cardiovascular: Reports: No Symptoms Gastrointestinal: Reports: No Symptoms Genitourinary: Reports: No Symptoms Musculoskeletal: Reports: No Symptoms Skin: Reports: No Symptoms Neurological: Reports: No Symptoms Psychiatric: Reports: No Symptoms - Patient Data Vitals - Most Recent: Last Vital Signs Temp 97.8 F 04/02/19 12:00 Pulse 75 04/02/19 12:00 Resp 18 04/02/19 12:00 BP 126/84 04/02/19 12:00 Pulse Ox 97 04/02/19 12:00 Weight - Most Recent: 169 lb 8 oz Lab Results - Last 24 hrs: Laboratory Results - last 24 hr 04/02/19 04/02/19 Range/Units 07:10 07:10 WBC 4.5 L (5.0-10.0) 10^3/uL RBC 3.69 L (4.00-5.50) 10^6/uL Hgb 10.6 L (12.0-16.0) g/dL Hct 33.2 L (37.0-47.0) % MCV 90.0 (82.0-94.0) fL MCH 28.7 (27.0-32.0) pg MCHC 31.9 L (33.0-38.0) g/dL RDW Coeff of Malini 13.4 (11.0-15.0) % Plt Count 278 (150-400) 10^3/uL Neut % (Auto) 63.2 (35-85) % Lymph % (Auto) 20.8 (10-55) % [place] % (Auto) 5.8 (0-16) % Eos % (Auto) 10.0 H (0-5) % Baso % (Auto) 0.2 (0-3) % Neut # (Auto) 2.86 (1.80-7.00) 10^3/uL Lymph # (Auto) 0.94 L (1.00-4.80) 10^3/uL [place] # (Auto) 0.26 (0.00-0.80) 10^3/uL Eos # (Auto) 0.45 (0.00-0.45) 10^3/uL Baso # (Auto) 0.01 10^3/uL Sodium 143 (136-145) mEq/L Potassium 3.5 (3.5-5.0) mEq/L Chloride 108 H (98-106) mEq/L Carbon Dioxide 27 (21-32) mmol/L BUN 12 (7-18) mg/dL Creatinine 0.8 (0.6-1.0) mg/dL Est Cr Clr Drug Dosing 64.76 mL/min Estimated GFR (MDRD) > 60 (>=60) mL/min Glucose 84 (75-99) mg/dL Calcium 7.8 L (8.4-10.1) mg/dL C-Reactive Protein 4.0 H (0.2-0.8) mg/dL DIVYA Results - Last 24 hrs: Microbiology 03/30/19 17:12 Aerobic Blood Culture - Preliminary Blood NO GROWTH AFTER 2 DAYS Anaerobic Blood Culture - Preliminary NO GROWTH AFTER 2 DAYS 03/30/19 16:50 Aerobic Blood Culture - Preliminary Blood NO GROWTH AFTER 2 DAYS Anaerobic Blood Culture - Preliminary NO GROWTH AFTER 2 DAYS Med Orders - Current: Current Medications Acetaminophen (Tylenol) 650 mg PO Q4H PRN PRN Reason: Pain (Mild 1-3)/fever Last Admin: 03/31/19 19:42 Dose: 650 mg Albuterol/Ipratropium (Duoneb 3.0-0.5 Mg/3 Ml) 3 ml NEB Q4H PRN PRN Reason: Shortness Of Breath/wheezing Ceftriaxone Sodium (Rocephin) 1 gm IVPUSH Q24H [facility] Last Admin: 04/02/19 08:52 Dose: 1 gm Enoxaparin Sodium (Lovenox) 40 mg SUBCUT Q24H [facility] Last Admin: 04/01/19 17:37 Dose: 40 mg Azithromycin 500 mg/ Sodium (Chloride) 250 mls @ 250 mls/hr IV Q24H [facility] Last Admin: 04/02/19 08:53 Dose: 250 mls/hr Ibuprofen (Motrin) 600 mg PO Q6H PRN PRN Reason: Pain/Fever Last Admin: 04/01/19 19:48 Dose: 600 mg Levothyroxine Sodium (Synthroid) 100 mcg PO DAILY [facility] Last Admin: 04/02/19 08:52 Dose: 100 mcg Lorazepam (Ativan) 0.5 - 1 mg PO Q6H PRN PRN Reason: Anxiety Last Admin: 04/01/19 03:26 Dose: 0.5 mg Memantine (Namenda) 10 mg PO DAILY [facility] Last Admin: 04/02/19 08:52 Dose: 10 mg Oseltamivir Phosphate (Tamiflu) 75 mg PO BID [facility] Stop: 04/04/19 08:01 Last Admin: 04/02/19 08:52 Dose: 75 mg Quetiapine Fumarate (Seroquel) 25 mg PO BID [facility] Last Admin: 04/02/19 08:52 Dose: 25 mg Discontinued Medications Sodium Chloride (Normal Saline) 1,000 mls @ 125 mls/hr IV ASDIRECTED [facility] Last Admin: 03/31/19 02:06 Dose: 125 mls/hr Oseltamivir Phosphate (Tamiflu) 75 mg PO BID [facility] Last Admin: 03/31/19 07:45 Dose: 75 mg Oseltamivir Phosphate (Tamiflu) 75 mg PO BID [facility] Stop: 04/04/19 08:01 - Exam General: Reports: Alert, Oriented, Cooperative Lungs: Reports: Clear to Auscultation, Normal Respiratory Effort Cardiovascular: Reports: Regular Rate, Regular Rhythm GI/Abdominal Exam: Soft, Non-Tender Back Exam: Reports: Normal Inspection Extremities: Normal Inspection, Normal Range of Motion, Non-Tender, No Pedal Edema, Normal Capillary Refill Skin: Reports: Warm, Dry, Intact Neurological: Reports: No New Focal Deficit, Other (oriented to place. Her baseline. Dementia.) Psy/Mental Status: Reports: Alert, Normal Affect, Normal Mood
[2019-04-02] MEDS ORDERED: Oseltamivir 75 MG Cap PO ONE (13:41)
[2019-04-02] MEDS ORDERED: Azithromycin 250 MG Tab PO ONE (13:41)
[2019-04-02] MEDS ORDERED: QUEtiapine 25 MG Tab PO ONE (13:44)
== END 2019-04-02 14:21 | disposition home or self-care (01) | DRG 195 ==
LOC: CC.FCMC 16:46 → CC.MS 16:53 → UNDOADMIN 16:53 → CC.MS 17:50
PROVIDERS: ADMIT Physician Assistant Medical; ATTEND Family Medicine
DX: J10.00 Influenza due to other identified influenza virus with unspecified type of pneumonia (principal); F02.80 Dementia in other diseases classified elsewhere, unspecified severity, without behavioral disturbance, psychotic disturbance, mood disturbance, and anxiety; J10.1 Influenza due to other identified influenza virus with other respiratory manifestations; G30.9 Alzheimer's disease, unspecified; L25.9 Unspecified contact dermatitis, unspecified cause; G43.909 Migraine, unspecified, not intractable, without status migrainosus; E89.0 Postprocedural hypothyroidism; M54.16 Radiculopathy, lumbar region; M32.9 Systemic lupus erythematosus, unspecified; Z88.8 Allergy status to other drugs, medicaments and biological substances; Z90.710 Acquired absence of both cervix and uterus; Z79.890 Hormone replacement therapy; Z79.899 Other long term (current) drug therapy
CPT/HCPCS: 36415; 71046; 80048; 80053; 83605; 85025; 86140; 87040; 87804; A9270-GY; J0456; J0696; J1650; J7030; J7050

== ENCOUNTER 2019-04-11 14:03 | Emergency (ER) | payer MEDICARE, BC ==
[2019-04-11] MEDS ORDERED: Clindamycin HCl 150 MG Cap PO ONE ×2 (14:04→14:30)
[2019-04-11] MEDS ORDERED: diphenhydrAMINE 25 MG Cap PO ONE (14:29)
[2019-04-11] MEDS ORDERED: Take Home: Clindamycin HCl 150 MG Cap, 6 Cap Pack PO ONE (14:32)
--- NOTE | 2019-04-11 14:37 | EDM.PDOC ---
ED HPI GENERAL MEDICAL PROBLEM - General Chief Complaint: ENT Problem Stated Complaint: RIGHT EYE RED AND SWOLLEN Time Seen by Provider: 04/11/19 14:27 Source of Information: Reports: Patient, Family History Limitations: Reports: No Limitations, Other (dementia) - History of Present Illness INITIAL COMMENTS - FREE TEXT/NARRATIVE: in with c/o redness and mild swelling around the right eye area x 2 days, sx after starting amoxil for a sinus infection, no fever or chills, pt has not had any problems breathing, the pt has a hx of dementia Duration: Day(s): (2 days) Location: Reports: Face Severity: Mild Improves with: Reports: None Worsens with: Reports: None Associated Symptoms: Denies: Fever/Chills, Nausea/Vomiting, Rash, Shortness of Breath 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 (see below) (none) - Related Data Allergies Allergy/AdvReac Type Severity Reaction Status Date / Time nut - unspecified Allergy Rash Verified 04/11/19 14:09 rivastigmine [From Exelon] Allergy Other Verified 04/11/19 14:08 Home Meds: Home Meds Ibuprofen [Advil] 600 mg PO Q6H PRN 12/09/17 [History] Levothyroxine Sodium [Levoxyl] 100 mcg PO DAILY 12/09/17 [History] Memantine HCl 10 mg PO DAILY 05/25/18 [History] Azithromycin [Zithromax] 250 mg PO DAILY 2 Days #2 tab 04/02/19 [Rx] Oseltamivir [Tamiflu] 75 mg PO BID #3 cap 04/02/19 [Rx] QUEtiapine [SEROquel] 25 mg PO BID #60 tablet 04/02/19 [Rx] Clindamycin HCl [Cleocin] 150 mg PO Q8H 5 Days #15 cap 04/11/19 [Rx] Past Medical History Gastrointestinal History: Reports: Chronic Diarrhea Musculoskeletal History: Reports: Back Pain, Chronic Neurological History: Reports: Alzheimers Disease, Migraines Endocrine/Metabolic History: Reports: Hypothyroidism Hematologic History: Reports: Anemia Immunologic History: Reports: SLE - Infectious Disease History Infectious Disease History: Reports: C-Difficile - Past Surgical History GI Surgical History: Reports: Colonoscopy Female Surgical History: Reports: Hysterectomy Endocrine Surgical History: Reports: Thyroidectomy Social & Family History - Family History Family Medical History: Noncontributory - Tobacco Use Smoking Status *Q: Unknown Ever Smoked ED ROS ENT - Review of Systems Review Of Systems: See Below Constitutional: Denies: Fever HEENT: Reports: No Symptoms. Denies: Ear Pain, Eye Pain, Throat Pain Respiratory: Reports: No Symptoms. Denies: Shortness of Breath, Wheezing, Cough Cardiovascular: Reports: No Symptoms GI/Abdominal: Reports: No Symptoms. Denies: Vomiting Musculoskeletal: Reports: No Symptoms Skin: Reports: Erythema. Denies: Bruising, Rash, Wound Neurological: Reports: No Symptoms Psychiatric: Reports: No Symptoms ED EXAM, ENT - Physical Exam Exam: See Below Exam Limited By: Other (dementia) General Appearance: Alert, No Apparent Distress Eye Exam: Bilateral Eye: EOMI, PERRL Ears: Normal External Exam, Normal Canal Nose: Normal Inspection, Normal Mucousa Mouth/Throat: Normal Inspection, Normal Lips, Normal Oropharynx Head: Atraumatic, Normocephalic Neck: Normal Inspection, Supple, Non-Tender, Full Range of Motion Respiratory/Chest: No Respiratory Distress, Lungs Clear, Normal Breath Sounds Cardiovascular: Normal Peripheral Pulses, Regular Rate, Rhythm GI/Abdominal: Soft Back: Normal Inspection, Full Range of Motion Extremities: Normal Inspection, Normal Range of Motion, Non-Tender, Normal Capillary Refill Neurological: Alert, Normal Gait, No Motor/Sensory Deficits Psychiatric: Normal Affect, Normal Mood Skin: Warm, Dry, Normal Color, Erythema (with mild swelling around the right eye ) Course - Vital Signs Text/Narrative:: i suspect the pt may have an allergy to pcn, I am not convinced this is an allergic reaction as it is localized to the right eye area, I suspect this is a mild cellulitis, the pt will stop the amoxil, will give clindamycin and have the pt f/u with PCP on Last Recorded V/S: Last Vital Signs Temp 37.6 C 04/11/19 14:12 Pulse 89 04/11/19 14:12 Resp 20 04/11/19 14:12 BP 146/84 H 04/11/19 14:12 Pulse Ox 100 04/11/19 14:12 - Orders/Labs/Meds Orders: Active Orders 24 hr Category Date Time Status Clindamycin HCl [Cleocin] Med 04/11/19 14:30 Once 150 mg PO ONETIME ONE diphenhydrAMINE [Benadryl] Med 04/11/19 14:29 Once 25 mg PO ONETIME ONE Medication Orders Clindamycin HCl (Cleocin) 150 mg PO ONETIME ONE Stop: 04/11/19 14:31 Diphenhydramine HCl (Benadryl) 25 mg PO ONETIME ONE Stop: 04/11/19 14:30 Meds: Medications Generic Name Dose Route Start Last Admin Trade Name Freq PRN Reason Stop Dose Admin Clindamycin HCl 150 mg 04/11/19 14:30 Cleocin PO 04/11/19 14:31 ONETIME ONE Diphenhydramine HCl 25 mg 04/11/19 14:29 Benadryl PO 04/11/19 14:30 ONETIME ONE Departure - Departure Time of Disposition: 14:37 Disposition: Home, Self-Care 01 Condition: Good Clinical Impression: Cellulitis, face - Discharge Information *PRESCRIPTION DRUG MONITORING PROGRAM REVIEWED*: Not Applicable *COPY OF PRESCRIPTION DRUG MONITORING REPORT IN PATIENT ELVIN: Not Applicable Prescriptions: Clindamycin HCl [Cleocin] 150 mg PO Q8H 5 Days #15 cap Instructions: Cellulitis, Adult Additional Instructions: STOP the amoxil clindamycin 150mg, take 1 pill 3 x a day follow up with your family doctor on return to the ER sooner if worse or problems Sepsis Event Note - Evaluation Sepsis Screening Result: No Definite Risk - Focused Exam Vital Signs: Vital Signs Temp Pulse Resp BP Pulse Ox 04/11/19 14:12 37.6 C 89 20 146/84 H 100 Date Exam was Performed: 04/11/19 Time Exam was Performed: 14:31 - Problem List & Annotations (1) Cellulitis, face SNOMED Code(s): 759981446 Code(s): L03.211 - CELLULITIS OF FACE Status: Acute Priority: Medium - Problem List Review Problem List Initiated/Reviewed/Updated: Yes - My Orders Last 24 Hours: My Active Orders 04/11/19 14:29 diphenhydrAMINE [Benadryl] 25 mg PO ONETIME ONE 04/11/19 14:30 Clindamycin HCl [Cleocin] 150 mg PO ONETIME ONE - Assessment/Plan Last 24 Hours: My Active Orders 04/11/19 14:29 diphenhydrAMINE [Benadryl] 25 mg PO ONETIME ONE 04/11/19 14:30 Clindamycin HCl [Cleocin] 150 mg PO ONETIME ONE Plan: as above
== END 2019-04-11 14:52 | disposition home or self-care (01) ==
LOC: CC.ED 14:03
DX: L03.211 Cellulitis of face (principal); E03.9 Hypothyroidism, unspecified; G30.9 Alzheimer's disease, unspecified; F02.80 Dementia in other diseases classified elsewhere, unspecified severity, without behavioral disturbance, psychotic disturbance, mood disturbance, and anxiety; Z91.018 Allergy to other foods; Z88.8 Allergy status to other drugs, medicaments and biological substances; Z79.899 Other long term (current) drug therapy
CPT/HCPCS: 99283; 99284; A9270-GY

== ENCOUNTER 2019-04-25 15:20 | Inpatient (IN) | payer MEDICARE, BC ==
[2019-04-25 16:09] LABS: CHLORIDE,CL 104 mEq/L (98-106); SODIUM,NA 142 mEq/L (136-145)
[2019-04-25] MEDS ORDERED: Sodium Chloride 0.9% 10 ML Syringe FLUSH PRN (17:45)
[2019-04-25] MEDS ORDERED: Acetaminophen/HYDROcodone 325-5 MG Tab PO PRN (17:45)
[2019-04-25] MEDS ORDERED: Enoxaparin 60 MG/0.6 ML Syringe SUBCUT SCH (18:00)
[2019-04-25] MEDS: Enoxaparin 80 MG/0.8 ML Syringe SUBCUT SCH (19:42)
[2019-04-25] MEDS: QUEtiapine 25 MG Tab PO SCH (19:42)
[2019-04-25] MEDS: Memantine 10 MG Tab PO SCH (19:43)
[2019-04-25] MEDS ORDERED: B LON PO SCH (20:00)
[2019-04-25] MEDS ORDERED: [UNRECOGNIZED DRUG - OTHER] PO SCH (20:00)
[2019-04-26] MEDS ORDERED: Levothyroxine 100 MCG Tab PO SCH (07:00)
[2019-04-26] MEDS: Levothyroxine 100 MCG Tab **OWN MED PO SCH (08:48)
[2019-04-26] MEDS: Memantine 10 MG Tab PO SCH (08:52)
[2019-04-26] MEDS: QUEtiapine 25 MG Tab PO SCH (08:52)
[2019-04-26] MEDS: Enoxaparin 80 MG/0.8 ML Syringe SUBCUT SCH ×2 (08:52→20:20)
--- NOTE | 2019-04-26 09:20 | PCM.PN ---
- General Info Date of Service: 04/26/19 Admission Dx/Problem (Free Text): DVT Functional Status: Reports: Pain Controlled, Tolerating Diet, Ambulating - Review of Systems General: Reports: Other (ROS unobtainable due to patient confusion) - Patient Data Vitals - Most Recent: Last Vital Signs Temp 99.3 F 04/26/19 05:00 Pulse 80 04/26/19 05:00 Resp 20 04/26/19 05:00 BP 106/81 04/26/19 05:00 Pulse Ox 95 04/26/19 05:00 Weight - Most Recent: 164 lb 11.2 oz Lab Results Last 24 Hours: Laboratory Results - last 24 hr 04/25/19 04/25/19 04/25/19 Range/Units 15:24 15:24 15:24 WBC 3.6 L (5.0-10.0) 10^3/uL RBC 4.03 (4.00-5.50) 10^6/uL Hgb 11.8 L (12.0-16.0) g/dL Hct 36.3 L (37.0-47.0) % MCV 90.1 (82.0-94.0) fL MCH 29.3 (27.0-32.0) pg MCHC 32.5 L (33.0-38.0) g/dL RDW Coeff of Malini 13.4 (11.0-15.0) % Plt Count 318 (150-400) 10^3/uL Neut % (Auto) 55.8 (35-85) % Lymph % (Auto) 28.6 (10-55) % [place] % (Auto) 8.1 (0-16) % Eos % (Auto) 7.2 H (0-5) % Baso % (Auto) 0.3 (0-3) % Neut # (Auto) 2.01 (1.80-7.00) 10^3/uL Lymph # (Auto) 1.03 (1.00-4.80) 10^3/uL [place] # (Auto) 0.29 (0.00-0.80) 10^3/uL Eos # (Auto) 0.26 (0.00-0.45) 10^3/uL Baso # (Auto) 0.01 10^3/uL D-Dimer, Quantitative 1.74 H (0.00-0.50) Sodium 142 (136-145) mEq/L Potassium 4.0 (3.5-5.0) mEq/L Chloride 104 (98-106) mEq/L Carbon Dioxide 30 (21-32) mmol/L BUN 7 (7-18) mg/dL Creatinine 0.7 (0.6-1.0) mg/dL Est Cr Clr Drug Dosing TNP Estimated GFR (MDRD) > 60 (>=60) mL/min Glucose 81 (75-99) mg/dL Calcium 8.5 (8.4-10.1) mg/dL Total Bilirubin 0.3 (0.0-1.0) mg/dL AST 45 H (15-37) U/L ALT 28 (12-78) U/L Alkaline Phosphatase 178 H (46-116) U/L Troponin I < 0.017 (0.00-0.06) ng/mL NT-Pro-B Natriuret Pep 140 (0-1000) pg/mL Total Protein 7.9 (6.4-8.2) g/dL Albumin 2.9 L (3.4-5.0) g/dL Free T4 1.2 (0.8-1.6) ng/dL TSH, Ultra Sensitive 7.63 H (0.36-5.60) uIU/mL Med Orders - Current: Current Medications Acetaminophen (Tylenol) 650 mg PO Q4H PRN PRN Reason: Pain (Mild 1-3)/fever Hydrocodone Bitart/Acetaminophen ([place] 325-5 Mg) 1 tab PO Q4H PRN PRN Reason: Pain (moderate 4-6) Enoxaparin Sodium (Lovenox) 80 mg SUBCUT Q12H [facility] Last Admin: 04/26/19 08:52 Dose: 80 mg Levothyroxine Sodium (Synthroid) 100 mcg PO ACBREAKFAST [facility] Last Admin: 04/26/19 08:48 Dose: 100 mcg Memantine (Namenda) 10 mg PO BID [facility] Last Admin: 04/26/19 08:52 Dose: 10 mg Quetiapine Fumarate (Seroquel) 25 mg PO BID [facility] Last Admin: 04/26/19 08:52 Dose: 25 mg Sodium Chloride (Saline Flush) 10 ml FLUSH ASDIRECTED PRN PRN Reason: Keep Vein Open Discontinued Medications Enoxaparin Sodium (Lovenox) 60 mg SUBCUT Q12H [facility] Last Admin: 04/25/19 18:44 Dose: Not Given Levothyroxine Sodium (Synthroid) 100 mcg PO ACBREAKFAST [facility] Non-Formulary Medication (B Infantis/B Ani/B [place]/B Bifid [Probiotic 4x Caplet]) 1 tab PO BID LOAN - Exam General: Alert, Oriented HEENT: Mucous Membr. Moist/[place] Neck: Supple Lungs: Clear to Auscultation, Normal Respiratory Effort Cardiovascular: Regular Rate, Regular Rhythm GI/Abdominal Exam: Normal Bowel Sounds, Soft, Non-Tender Extremities: Normal Inspection, Pedal Edema (3+ RLE, 1-2+ LLE) Skin: Warm, Dry Neurological: No New Focal Deficit Sepsis Event Note - Evaluation Sepsis Screening Result: No Definite Risk - Focused Exam Vital Signs: Vital Signs Temp Pulse Resp BP Pulse Ox 04/26/19 05:00 99.3 F 80 20 106/81 95 Date Exam was Performed: 04/26/19 Time Exam was Performed: 09:11 - Problem List & Annotations (1) DVT (deep venous thrombosis) SNOMED Code(s): 709222553 Code(s): I82.409 - ACUTE EMBOLISM AND THOMBOS UNSP DEEP VN UNSP LOWER EXTREMITY Status: Acute Current Visit: Yes Qualifiers: DVT location: lower extremity Chronicity: acute Laterality: right - Problem List Review Problem List Initiated/Reviewed/Updated: Yes - Assessment Assessment:: DVT of RLE - Plan Plan:: Patient resting comfortably this am. Is confused but follows direction this am. Lung sounds are clear. No respiratory distress. Does have more edema in RLE. Concerns for DVT. Unable to obtain ultrasound yesterday as no available tech at that time or today. Treating for DVT with Lovenox until able to obtain tomorrow. WBC 3.6. Hemoglobin 11.8. D-Dimer 1.74. Will continue with usual meds/Lovenox. Obtain ultrasound in am.
[2019-04-26] MEDS ORDERED: Memantine 10 MG Tab **OWN MED PO SCH (18:46)
[2019-04-26] MEDS: Memantine 10 MG Tab **OWN MED PO SCH (20:16)
[2019-04-26] MEDS: QUEtiapine 25 MG Tab **OWN MED PO SCH (20:17)
[2019-04-26] MEDS: Acetaminophen 325 MG Tab PO PRN (20:17)
[2019-04-27] MEDS: Levothyroxine 100 MCG Tab **OWN MED PO SCH (06:48)
[2019-04-27] MEDS: Enoxaparin 80 MG/0.8 ML Syringe SUBCUT SCH ×2 (07:37→19:22)
[2019-04-27] MEDS: QUEtiapine 25 MG Tab **OWN MED PO SCH (07:38)
[2019-04-27] MEDS: Memantine 10 MG Tab **OWN MED PO SCH (07:38)
--- NOTE | 2019-04-27 10:06 | PCM.PN ---
- General Info Date of Service: 04/27/19 Admission Dx/Problem (Free Text): DVT - Review of Systems General: Reports: Other (ROS unobtainable as patient has minimal verbal responses, disoriented. ) - Patient Data Vitals - Most Recent: Last Vital Signs Temp 98.7 F 04/27/19 08:00 Pulse 90 04/27/19 08:00 Resp 18 04/27/19 08:00 BP 135/66 04/27/19 08:00 Pulse Ox 97 04/27/19 04:00 Weight - Most Recent: 164 lb 11.2 oz Med Orders - Current: Current Medications Acetaminophen (Tylenol) 650 mg PO Q4H PRN PRN Reason: Pain (Mild 1-3)/fever Last Admin: 04/26/19 20:17 Dose: 650 mg Hydrocodone Bitart/Acetaminophen ([place] 325-5 Mg) 1 tab PO Q4H PRN PRN Reason: Pain (moderate 4-6) Enoxaparin Sodium (Lovenox) 80 mg SUBCUT Q12H [facility] Last Admin: 04/27/19 07:37 Dose: 80 mg Levothyroxine Sodium (Synthroid) 100 mcg PO ACBREAKFAST [facility] Last Admin: 04/27/19 06:48 Dose: 100 mcg Memantine (Namenda) 10 mg PO BID [facility] Last Admin: 04/27/19 07:38 Dose: 10 mg Quetiapine Fumarate (Seroquel) 25 mg PO BID [facility] Last Admin: 04/27/19 07:38 Dose: 25 mg Sodium Chloride (Saline Flush) 10 ml FLUSH ASDIRECTED PRN PRN Reason: Keep Vein Open Discontinued Medications Enoxaparin Sodium (Lovenox) 60 mg SUBCUT Q12H [facility] Last Admin: 04/25/19 18:44 Dose: Not Given Levothyroxine Sodium (Synthroid) 100 mcg PO ACBREAKFAST [facility] Memantine (Namenda) 10 mg PO BID [facility] Last Admin: 04/26/19 08:52 Dose: 10 mg Memantine (Namenda) 10 mg PO BID [facility] Non-Formulary Medication (B Infantis/B Ani/B [place]/B Bifid [Probiotic 4x Caplet]) 1 tab PO BID [facility] Quetiapine Fumarate (Seroquel) 25 mg PO BID [facility] Last Admin: 04/26/19 08:52 Dose: 25 mg - Exam General: Alert HEENT: Mucous Membr. Moist/[place] Neck: Supple Lungs: Clear to Auscultation, Normal Respiratory Effort Cardiovascular: Regular Rate, Regular Rhythm GI/Abdominal Exam: Normal Bowel Sounds, Soft, Non-Tender Extremities: Pedal Edema (2-3+ RLE, 2+ LLE) Skin: Warm, Dry Neurological: No New Focal Deficit Sepsis Event Note - Evaluation Sepsis Screening Result: No Definite Risk - Focused Exam Vital Signs: Vital Signs Temp Pulse Resp BP Pulse Ox 04/27/19 08:00 98.7 F 90 18 135/66 04/27/19 04:00 97.9 F 66 16 117/67 97 04/27/19 00:00 98.6 F 82 20 107/70 98 04/26/19 22:20 98.7 F Date Exam was Performed: 04/27/19 Time Exam was Performed: 10:01 - Problem List & Annotations (1) DVT (deep venous thrombosis) SNOMED Code(s): 871745729 Code(s): I82.409 - ACUTE EMBOLISM AND THOMBOS UNSP DEEP VN UNSP LOWER EXTREMITY Status: Ruled-out Current Visit: Yes Qualifiers: DVT location: lower extremity Chronicity: acute Laterality: right - Problem List Review Problem List Initiated/Reviewed/Updated: Yes - My Orders Last 24 Hours: My Active Orders 04/27/19 09:41 Abdomen Pelvis w Cont [CT] Routine Chest w Cont [CT] Routine - Assessment Assessment:: DVT ruled out lymphadenopathy to pelvic region Pleural effusion - Plan Plan:: Patient resting comfortably this am. Is confused but follows direction this am. Lung sounds are clear. No respiratory distress. Does have more edema in RLE. Concerns for DVT. Unable to obtain ultrasound yesterday as no available tech at that time or today. Treating for DVT with Lovenox until able to obtain tomorrow. WBC 3.6. Hemoglobin 11.8. D-Dimer 1.74. Will continue with usual meds/Lovenox. Obtain ultrasound in am. 04-27-2019 Patient stable, confused but able to redirect. Lung sounds clear. Does continue to have edema in RLE, swelling consistent with measurements from yesterday. Ultrasound this am negative for DVT, noted right pelvic lymphadenopathy. Chest xray did show pleural effusion. Vital signs stable. Will proceed with CT scan of chest, abdomen and pelvis.
[2019-04-27] MEDS ORDERED: Barium Sulfate Oral Susp 450 ML Bottle PO ONE (14:06)
[2019-04-27] MEDS ORDERED: Iopamidol 755 Mg/ML 100 ML Bottle IVPUSH ONE (14:06)
[2019-04-27] MEDS: QUEtiapine 25 MG Tab PO SCH (19:22)
[2019-04-27] MEDS: Memantine 10 MG Tab PO SCH (19:22)
[2019-04-28] MEDS: Levothyroxine 100 MCG Tab PO SCH (06:48)
--- NOTE | 2019-04-28 09:06 | PCM.PN ---
- General Info Date of Service: 04/28/19 Admission Dx/Problem (Free Text): DVT Subjective Update: Review of systems unobtainable as patient disoriented x2, does redirect with staff, minimal verbal responses. - Review of Systems General: Denies: Fever, Weakness - Patient Data Vitals - Most Recent: Last Vital Signs Temp 98.2 F 04/28/19 08:00 Pulse 66 04/28/19 08:00 Resp 18 04/28/19 08:00 BP 115/71 04/28/19 08:00 Pulse Ox 100 04/28/19 08:00 Weight - Most Recent: 164 lb 11.2 oz Lab Results Last 24 Hours: Laboratory Results - last 24 hr 04/27/19 Range/Units 17:00 Urine Color Light yellow (YELLOW) Urine Appearance Clear (CLEAR) Urine pH 7.0 (4.5-8.0) Ur Specific Boomer 1.015 (1.003-1.020) Urine Protein Negative (NEGATIVE) mg/dL Urine Glucose (UA) Negative (NEGATIVE) mg/dL Urine Ketones Negative (NEGATIVE) mg/dL Urine Occult Blood Negative (NEGATIVE) Urine Nitrite Negative (NEGATIVE) Urine Bilirubin Negative (NEGATIVE) Urine Urobilinogen 0.2 (0.2-1.0) EU/dL Ur Leukocyte Esterase Negative (NEGATIVE) Med Orders - Current: Current Medications Acetaminophen (Tylenol) 650 mg PO Q4H PRN PRN Reason: Pain (Mild 1-3)/fever Last Admin: 04/26/19 20:17 Dose: 650 mg Hydrocodone Bitart/Acetaminophen ([place] 325-5 Mg) 1 tab PO Q4H PRN PRN Reason: Pain (moderate 4-6) Enoxaparin Sodium (Lovenox) 80 mg SUBCUT Q12H [facility] Last Admin: 04/27/19 19:22 Dose: 80 mg Levothyroxine Sodium (Synthroid) 100 mcg PO ACBREAKFAST [facility] Last Admin: 04/28/19 06:48 Dose: 100 mcg Memantine (Namenda) 10 mg PO BID [facility] Last Admin: 04/27/19 19:22 Dose: 10 mg Quetiapine Fumarate (Seroquel) 25 mg PO BID [facility] Last Admin: 04/27/19 19:22 Dose: 25 mg Sodium Chloride (Saline Flush) 10 ml FLUSH ASDIRECTED PRN PRN Reason: Keep Vein Open Discontinued Medications Barium Sulfate (Readi-Cat 2) 900 ml PO ONETIME ONE Stop: 04/27/19 14:07 Last Admin: 04/27/19 14:42 Dose: 900 ml Enoxaparin Sodium (Lovenox) 60 mg SUBCUT Q12H [facility] Last Admin: 04/25/19 18:44 Dose: Not Given Iopamidol (Isovue-370 (76%)) 100 ml IVPUSH ONETIME ONE Stop: 04/27/19 14:07 Last Admin: 04/27/19 14:42 Dose: 100 ml Levothyroxine Sodium (Synthroid) 100 mcg PO ACBREAKFAST LOAN Levothyroxine Sodium (Synthroid) 100 mcg PO ACBREAKFAST [facility] Last Admin: 04/27/19 06:48 Dose: 100 mcg Memantine (Namenda) 10 mg PO BID [facility] Last Admin: 04/26/19 08:52 Dose: 10 mg Memantine (Namenda) 10 mg PO BID [facility] Memantine (Namenda) 10 mg PO BID [facility] Last Admin: 04/27/19 07:38 Dose: 10 mg Non-Formulary Medication (B Infantis/B Ani/B Colby/B Bifid [Probiotic 4x Caplet]) 1 tab PO BID [facility] Quetiapine Fumarate (Seroquel) 25 mg PO BID [facility] Last Admin: 04/26/19 08:52 Dose: 25 mg Quetiapine Fumarate (Seroquel) 25 mg PO BID [facility] Last Admin: 04/27/19 07:38 Dose: 25 mg - Exam General: Alert, Cooperative HEENT: Mucous Membr. Moist/Central Garage Neck: Supple Lungs: Clear to Auscultation, Normal Respiratory Effort, Other (has palpable lymph node in right axilla) Cardiovascular: Regular Rate, Regular Rhythm GI/Abdominal Exam: Normal Bowel Sounds, Soft, Non-Tender Back Exam: Normal Inspection Extremities: Normal Inspection, Pedal Edema Skin: Warm, Dry Neurological: No New Focal Deficit Sepsis Event Note - Evaluation Sepsis Screening Result: No Definite Risk - Focused Exam Vital Signs: Vital Signs Temp Pulse Resp BP Pulse Ox 04/28/19 08:00 98.2 F 66 18 115/71 100 04/28/19 04:00 98.2 F 74 18 129/63 99 04/28/19 00:00 99 F 80 18 102/78 98 Date Exam was Performed: 04/28/19 Time Exam was Performed: 09:01 - Problem List & Annotations (1) DVT (deep venous thrombosis) SNOMED Code(s): 067984915 Code(s): I82.409 - ACUTE EMBOLISM AND THOMBOS UNSP DEEP VN UNSP LOWER EXTREMITY Status: Ruled-out Current Visit: Yes Qualifiers: DVT location: lower extremity Chronicity: acute Laterality: right (2) Lymphadenopathy SNOMED Code(s): 81879284 Code(s): R59.1 - GENERALIZED ENLARGED LYMPH NODES Status: Acute Priority : High Current Visit: Yes - Problem List Review Problem List Initiated/Reviewed/Updated: Yes - My Orders Last 24 Hours: My Active Orders 04/27/19 09:41 Abdomen Pelvis w Cont [CT] Routine Chest w Cont [CT] Routine 04/28/19 07:58 Consult to Physician [CONS] Routine 04/28/19 07:59 Notify Provider Consults [RC] ASDIRECTED - Assessment Assessment:: DVT ruled out lymphadenopathy to pelvic region Pleural effusion - Plan Plan:: Patient resting comfortably this am. Is confused but follows direction this am. Lung sounds are clear. No respiratory distress. Does have more edema in RLE. Concerns for DVT. Unable to obtain ultrasound yesterday as no available tech at that time or today. Treating for DVT with Lovenox until able to obtain tomorrow. WBC 3.6. Hemoglobin 11.8. D-Dimer 1.74. Will continue with usual meds/Lovenox. Obtain ultrasound in am. 04-27-2019 Patient stable, confused but able to redirect. Lung sounds clear. Does continue to have edema in RLE, swelling consistent with measurements from yesterday. Ultrasound this am negative for DVT, noted right pelvic lymphadenopathy. Chest xray did show pleural effusion. Vital signs stable. Will proceed with CT scan of chest, abdomen and pelvis. 04-28-2019 Stable, ambulating about per self, does redirect well. Has been incontinent of stool for the last 2 days. Ongoing edema in lower extremities. CT scan of chest, abdomen and pelvis was done yesterday. Did show enlarged lymph nodes in pelvis and axilla. Does have one palpable lymph node in left axilla. Discussed with . Does agree to proceed with biopsy of lymph node if able. Dr. Gilliam will consult with Dr. Malin, surgeon on staff today, about possible biopsy and proceed if agrees.
[2019-04-28] MEDS: Memantine 10 MG Tab PO SCH ×2 (09:18→19:27)
[2019-04-28] MEDS: QUEtiapine 25 MG Tab PO SCH ×2 (09:18→19:27)
[2019-04-28] MEDS: Enoxaparin 80 MG/0.8 ML Syringe SUBCUT SCH (09:19)
[2019-04-28] MEDS ORDERED: Lactated Ringers 1,000 ML ONE (10:56)
[2019-04-28] MEDS: Acetaminophen 325 MG Tab PO PRN (23:25)
[2019-04-29] MEDS: Levothyroxine 100 MCG Tab PO SCH (06:55)
[2019-04-29] MEDS ORDERED: Enoxaparin 40 MG/0.4 ML Syringe SUBCUT SCH (08:00)
[2019-04-29] MEDS: QUEtiapine 25 MG Tab PO SCH (08:02)
[2019-04-29] MEDS: Memantine 10 MG Tab PO SCH (08:02)
--- NOTE | 2019-04-29 12:17 | PCM.DCSUM1 ---
Discharge Summary - Hospital Course HPI Initial Comments: This patient was admitted following lymph node biopsy performed yesterday. Today patient is ambulating without issues. She is alert, without complaint. Dementia at baseline. Her I spoke with today about possible prison placement. He is alert and oriented and of sound body and mind. Patient appears to be upkept and well taken care of. He reports he wants to take her home. I will discharge the patient home. - Discharge Data Discharge Date: 04/29/19 Discharge Disposition: Home, Self-Care 01 Condition: Good - Referral to Home Health Primary Care Physician: Harpreet Gilliam MD - Patient Summary/Data Consults: Consultations 04/28/19 07:58 Consult to Physician [CONS] Routine - Patient Instructions Diet: Usual Diet as Tolerated Activity: As Tolerated Driving: Do Not Drive Notify Provider of: Fever, Nausea and/or Vomiting Other/Special Instructions: Followup with your primary care provider this week for biopsy results. Return as needed - Discharge Plan *PRESCRIPTION DRUG MONITORING PROGRAM REVIEWED*: Not Applicable *COPY OF PRESCRIPTION DRUG MONITORING REPORT IN PATIENT ELVIN: Not Applicable Home Medications: Home Meds Ibuprofen [Advil] 600 mg PO Q6H PRN 12/09/17 [History] Levothyroxine Sodium [Levoxyl] 100 mcg PO DAILY 12/09/17 [History] Memantine HCl 10 mg PO BID 05/25/18 [History] B Infantis/B Ani/B Colby/B Bifid [Probiotic 4X Caplet] 1 tab PO BID 04/25/19 [ History] QUEtiapine [SEROquel] 25 mg PO BID 04/25/19 [History] Oxygen Therapy Mode: Room Air - Discharge Summary/Plan Comment DC Time >30 min.: No - General Info Functional Status: Reports: Pain Controlled, Tolerating Diet, Ambulating, Urinating - Review of Systems General: Reports: No Symptoms HEENT: Reports: No Symptoms Pulmonary: Reports: No Symptoms Cardiovascular: Reports: No Symptoms Gastrointestinal: Reports: No Symptoms Genitourinary: Reports: No Symptoms Musculoskeletal: Reports: No Symptoms Skin: Reports: No Symptoms Neurological: Reports: No Symptoms Psychiatric: Reports: No Symptoms - Patient Data Vitals - Most Recent: Last Vital Signs Temp 99.1 F 04/29/19 04:00 Pulse 82 04/29/19 04:00 Resp 18 04/29/19 04:00 BP 140/87 01/11/20 04:00 Pulse Ox 98 04/29/19 04:00 Weight - Most Recent: 164 lb 11.2 oz Med Orders - Current: Current Medications Acetaminophen (Tylenol) 650 mg PO Q4H PRN PRN Reason: Pain (Mild 1-3)/fever Last Admin: 04/28/19 23:25 Dose: 650 mg Hydrocodone Bitart/Acetaminophen ([place] 325-5 Mg) 1 tab PO Q4H PRN PRN Reason: Pain (moderate 4-6) Enoxaparin Sodium (Lovenox) 40 mg SUBCUT Q24H [facility] Last Admin: 04/29/19 08:02 Dose: 40 mg Levothyroxine Sodium (Synthroid) 100 mcg PO ACBREAKFAST [facility] Last Admin: 04/29/19 06:55 Dose: 100 mcg Memantine (Namenda) 10 mg PO BID [facility] Last Admin: 04/29/19 08:02 Dose: 10 mg Quetiapine Fumarate (Seroquel) 25 mg PO BID [facility] Last Admin: 04/29/19 08:02 Dose: 25 mg Sodium Chloride (Saline Flush) 10 ml FLUSH ASDIRECTED PRN PRN Reason: Keep Vein Open Discontinued Medications Barium Sulfate (Readi-Cat 2) 900 ml PO ONETIME ONE Stop: 04/27/19 14:07 Last Admin: 04/27/19 14:42 Dose: 900 ml Enoxaparin Sodium (Lovenox) 60 mg SUBCUT Q12H [facility] Last Admin: 04/25/19 18:44 Dose: Not Given Enoxaparin Sodium (Lovenox) 80 mg SUBCUT Q12H [facility] Last Admin: 04/28/19 09:19 Dose: Not Given Lactated Ringer's (Ringers, Lactated) Confirm Administered Dose 1,000 mls @ as directed .ROUTE .STK-MED ONE Stop: 04/28/19 10:57 Last Admin: 04/28/19 12:18 Dose: 100 mls/hr Iopamidol (Isovue-370 (76%)) 100 ml IVPUSH ONETIME ONE Stop: 04/27/19 14:07 Last Admin: 04/27/19 14:42 Dose: 100 ml Levothyroxine Sodium (Synthroid) 100 mcg PO ACBREAKFAST [facility] Levothyroxine Sodium (Synthroid) 100 mcg PO ACBREAKFAST [facility] Last Admin: 04/27/19 06:48 Dose: 100 mcg Memantine (Namenda) 10 mg PO BID [facility] Last Admin: 04/26/19 08:52 Dose: 10 mg Memantine (Namenda) 10 mg PO BID [facility] Memantine (Namenda) 10 mg PO BID [facility] Last Admin: 04/27/19 07:38 Dose: 10 mg Non-Formulary Medication (B Infantis/B Ani/B Colby/B Bifid [Probiotic 4x Caplet]) 1 tab PO BID [facility] Quetiapine Fumarate (Seroquel) 25 mg PO BID [facility] Last Admin: 04/26/19 08:52 Dose: 25 mg Quetiapine Fumarate (Seroquel) 25 mg PO BID [facility] Last Admin: 04/27/19 07:38 Dose: 25 mg - Exam General: Reports: Alert Lungs: Reports: Clear to Auscultation, Normal Respiratory Effort Cardiovascular: Reports: Regular Rate, Regular Rhythm Extremities: Normal Inspection, Normal Range of Motion, Non-Tender, No Pedal Edema, Normal Capillary Refill Skin: Reports: Warm, Dry, Other (surgical wound steri strips. No drainage, no redness, no heat. ) Psy/Mental Status: Reports: Alert, Normal Affect, Normal Mood
== END 2019-04-29 12:15 | disposition home or self-care (01) | DRG 815 ==
LOC: CC.FCMC 15:20 → CC.MS 16:39 → UNDOADMOB 16:39 → CC.MS 17:45 → OBSVTOIN 04-27 15:07
PROVIDERS: ADMIT Family Medicine; ATTEND Family Medicine
DX: R59.0 Localized enlarged lymph nodes (principal); I82.409 Acute embolism and thrombosis of unspecified deep veins of unspecified lower extremity; J90 Pleural effusion, not elsewhere classified; R79.1 Abnormal coagulation profile; E03.9 Hypothyroidism, unspecified; R41.0 Disorientation, unspecified; R06.09 Other forms of dyspnea; G30.9 Alzheimer's disease, unspecified; M32.9 Systemic lupus erythematosus, unspecified; E89.0 Postprocedural hypothyroidism; R60.0 Localized edema; F02.80 Dementia in other diseases classified elsewhere, unspecified severity, without behavioral disturbance, psychotic disturbance, mood disturbance, and anxiety; Z88.8 Allergy status to other drugs, medicaments and biological substances; Z79.890 Hormone replacement therapy; Z79.899 Other long term (current) drug therapy; Z90.710 Acquired absence of both cervix and uterus
CPT/HCPCS: 36415; 71046; 71260; 74177; 80053; 81003; 83880; 84439; 84443; 84484; 85025; 85379; 93971-RT; 96372; A9270-GY; G0378; J1650; J7120; Q9967

== ENCOUNTER → 2019-04-28 | Day surgery (SDC) | payer MEDICARE, BC ==
[~2019-04-28] MED LIST changes: +Lidocaine 1% with EPINEPHrine 1:100,000 20 ML MDV ONE; -Propofol 200 MG/20 ML SDV IV ONE
--- NOTE | 2019-04-28 14:15 | OR ---
DATE OF OPERATION: 04/28/2019 PREOPERATIVE DIAGNOSIS: LEFT AXILLARY ADENOPATHY. POSTOPERATIVE DIAGNOSIS: LEFT AXILLARY ADENOPATHY. SURGEON: Namna Malin MD PROCEDURE: EXCISION OF DEEP AXILLARY LYMPH NODE, MEASURES 2 X 2 CM. ANESTHESIA: General. ESTIMATED BLOOD LOSS: None. SPECIMEN: Lymph node intact. INDICATIONS: This 68-year-old female has multiple adenopathies of the groin and axilla. Request for biopsy was given by primary care. DESCRIPTION OF PROCEDURE: After adequate preparation, an incision was made just to the axillary side of the pectoralis major muscle where a lymph node could be easily palpable. This seemed to be freely movable. This was taken down through the subcutaneous tissue and the deep fascia layer needed to be incised to expose this node. This was then teased from the surrounding tissue. The right-angle clamp was placed around the pedicle and the lymph node amputated. The pedicle was suture ligated with a 3-0 Vicryl suture. 3-0 Vicryl was used for the deep fascial layer and 4-0 Monocryl for the skin. BPB/MODL /[id number]
== END ==
LOC: CC.SDS 09:53
PROVIDERS: ATTEND Surgery
DX: R59.0 Localized enlarged lymph nodes (principal); E03.9 Hypothyroidism, unspecified; G30.9 Alzheimer's disease, unspecified; F02.80 Dementia in other diseases classified elsewhere, unspecified severity, without behavioral disturbance, psychotic disturbance, mood disturbance, and anxiety; Z88.8 Allergy status to other drugs, medicaments and biological substances; Z79.899 Other long term (current) drug therapy

== ENCOUNTER 2019-08-05 08:17 | Observation (INO) | payer MEDICARE, BC, OTHER ==
--- NOTE | 2019-08-05 09:24 | EDM.PDOC ---
ED HPI GENERAL MEDICAL PROBLEM - General Chief Complaint: Fever Stated Complaint: Fever and incontinent Time Seen by Provider: 08/05/19 09:09 Source of Information: Reports: Other (Clay Temperer) History Limitations: Reports: Altered Mental Status (chronic dementia) - History of Present Illness INITIAL COMMENTS - FREE TEXT/NARRATIVE: This patient is a 69 year old female that presents to the ER. Patient is accompanied by emergency vehicle dispatcher that is patients historian. As this patient has severe dementia and is nonverbal. The emergency vehicle dispatcher reports that the last 4 days the patient has had a fever, sweating. Clay Temperer reports that the patient has home health nurse and it was reported patient had wheezing this week in [place]. The emergency vehicle dispatcher reports the patient fever got up to 101.8, but does report medicating her temperatures the last few days. She also reports the patient has had less urine output than normal. The emergency vehicle dispatcher reports that the patient over the course of several weeks has really deteriorated. She reports she has become more nonverbal, not walking on her own, more generally weak, and losing weight. She reports her appetite has decreased. Onset Date: 08/01/19 Duration: Day(s): (4) Severity: Moderate Improves with: Reports: None Worsens with: Reports: None Associated Symptoms: Reports: Diaphoresis, Fever/Chills, Loss of Appetite, Weakness (generalized). Denies: Chest Pain, Cough, cough w sputum, Headaches, Malaise, Nausea/Vomiting, Rash, Seizure, Shortness of Breath, Syncope Treatments RETAIL LOSS PREVENTION INVESTIGATOR: Reports: Acetaminophen, Aspirin - Related Data Allergies Allergy/AdvReac Type Severity Reaction Status Date / Time nut - unspecified Allergy Rash Verified 04/25/19 16:53 rivastigmine [From Exelon] Allergy Other Verified 04/25/19 16:53 Home Meds: Home Meds Ibuprofen [Advil] 600 mg PO Q6H PRN 12/09/17 [History] Levothyroxine Sodium [Levoxyl] 100 mcg PO DAILY 12/09/17 [History] Memantine HCl 10 mg PO BID 05/25/18 [History] B Infantis/B Ani/B Colby/B Bifid [Probiotic 4X Caplet] 1 tab PO BID 04/25/19 [ History] QUEtiapine [SEROquel] 25 mg PO BID 04/25/19 [History] Past Medical History Gastrointestinal History: Reports: Chronic Diarrhea Genitourinary History: Reports: None Musculoskeletal History: Reports: Back Pain, Chronic, Other (See Below) Other Musculoskeletal History: degenerative disc disease, systemic lupus erythematosus, lumbar radiculopathy Neurological History: Reports: Alzheimers Disease, Migraines Psychiatric History: Reports: Alzheimers Disease, Dementia Endocrine/Metabolic History: Reports: Hypothyroidism Hematologic History: Reports: Anemia Immunologic History: Reports: SLE - Infectious Disease History Infectious Disease History: Reports: Influenza - Past Surgical History GI Surgical History: Reports: Colonoscopy Female Surgical History: Reports: Hysterectomy Endocrine Surgical History: Reports: Thyroidectomy Neurological Surgical History: Reports: None Musculoskeletal Surgical History: Reports: None Social & Family History - Family History Family Medical History: Noncontributory - Caffeine Use Caffeine Use: Reports: None ED ROS ENT - Review of Systems Review Of Systems: See Below Constitutional: Reports: No Symptoms HEENT: Reports: Rhinitis, Sinus Problem (congestion) Respiratory: Reports: Wheezing. Denies: Cough Cardiovascular: Reports: Other (BLE lymphedema) Endocrine: Reports: No Symptoms GI/Abdominal: Reports: Diarrhea (chronic with hx C-diff: Not much last several weeks). Denies: Abdominal Pain, Nausea, Vomiting : Reports: Other (Decreased urination) Musculoskeletal: Reports: No Symptoms Skin: Reports: No Symptoms Neurological: Reports: Confusion (chronic dementia. ), Other (Clay Temperer reports over the last several weeks patient has declined. Less verbal, not walking on her own anymore, losing weight.) Psychiatric: Reports: No Symptoms Hematologic/Lymphatic: Reports: No Symptoms Immunologic: Reports: No Symptoms ED EXAM, ENT - Physical Exam Exam: See Below Exam Limited By: Altered Mental Status (Chornic Dementia) General Appearance: Alert, Thin (compared to previous time I have seen her. ) Eye Exam: Bilateral Eye: PERRL, Other (sunken mildly) Ears: Normal External Exam, Normal Canal, Hearing Grossly Normal, Normal TMs Nose: Normal Inspection, Normal Mucousa, No Blood Mouth/Throat: Other (dentures in place. Needs cleaned. However, patient bites down and refuses to open.) Head: Atraumatic, Normocephalic Neck: Normal Inspection, Supple, Non-Tender, Full Range of Motion Respiratory/Chest: No Respiratory Distress, Crackles (BLL) Cardiovascular: Regular Rate, Rhythm, Systolic Murmur, Other (BLE Lymphedema: Nonpitting.) GI/Abdominal: Normal Bowel Sounds, Soft, Non-Tender, No Distention Back: Normal Inspection Extremities: Normal Range of Motion, Non-Tender, Normal Capillary Refill, Other (BLE Lymphedema). No: Pedal Edema Neurological: Alert, Other (Nonverbal, does no follow commands. Does eye open, follow with eyes. Dementia Severe. ). No: Oriented Skin: Warm, Dry, Intact, Normal Color, No Rash Lymphatic: No Adenopathy Course - Orders/Labs/Meds Orders: Active Orders 24 hr Category Date Time Status Chest 1V Frontal [CR] Stat Exams 08/05/19 09:10 Taken CORONAVIRUS COVID-19 PCR PHL Stat Lab 08/05/19 09:40 Received CULTURE BLOOD [BC] Stat Lab 08/05/19 09:20 Received CULTURE BLOOD [BC] Stat Lab 08/05/19 09:25 Received UA W/MICROSCOPIC [URIN] Stat Lab 08/05/19 09:16 Ordered Blood Culture x2 Reflex Set [OM.PC] Stat Oth 08/05/19 09:10 Ordered Isolation [COMM] Routine Oth 08/05/19 09:12 Active Labs: Laboratory Tests 08/05/19 08/05/19 08/05/19 Range/Units 09:20 09:20 09:40 WBC 9.0 (5.0-10.0) 10^3/uL RBC 3.19 L (4.00-5.50) 10^6/uL Hgb 9.4 L (12.0-16.0) g/dL Hct 28.2 L (37.0-47.0) % MCV 88.4 (82.0-94.0) fL MCH 29.5 (27.0-32.0) pg MCHC 33.3 (33.0-38.0) g/dL RDW Coeff of Malini 13.5 (11.0-15.0) % Plt Count 387 (150-400) 10^3/uL Neut % (Auto) 86.2 H (35-85) % Lymph % (Auto) 9.0 L (10-55) % [place] % (Auto) 4.2 (0-16) % Eos % (Auto) 0.6 (0-5) % Baso % (Auto) 0 (0-3) % Neut # (Auto) 7.76 H (1.80-7.00) 10^3/uL Lymph # (Auto) 0.81 L (1.00-4.80) 10^3/uL [place] # (Auto) 0.38 (0.00-0.80) 10^3/uL Eos # (Auto) 0.05 (0.00-0.45) 10^3/uL Baso # (Auto) 0.00 10^3/uL Sodium 131 L (136-145) mEq/L Potassium 3.0 L (3.5-5.0) mEq/L Chloride 95 L (98-106) mEq/L Carbon Dioxide 29 (21-32) mmol/L BUN 19 H (7-18) mg/dL Creatinine 0.8 (0.6-1.0) mg/dL Est Cr Clr Drug Dosing TNP Estimated GFR (MDRD) > 60 (>=60) mL/min Glucose 88 (75-99) mg/dL Lactic Acid 1.2 (0.4-2.0) mmol/L Calcium 8.2 L (8.4-10.1) mg/dL Total Bilirubin 0.7 (0.0-1.0) mg/dL AST 70 H (15-37) U/L ALT 39 (12-78) U/L Alkaline Phosphatase 444 H (46-116) U/L C-Reactive Protein 19.8 H (0.2-0.8) mg/dL Total Protein 7.2 (6.4-8.2) g/dL Albumin 2.0 L (3.4-5.0) g/dL - Radiology Interpretation Free Text/Narrative:: CXR: Possible infiltrates BLL. - Re-Assessments/Exams Free Text/Narrative Re-Assessment/Exam: 08/05/19 09:47 I do believe this patient does qualify for hospice care. She has declined in the last weeks per and emergency vehicle dispatcher. I did discuss the possibility of hospice with Serafin her and the emergency vehicle dispatcher. The emergency vehicle dispatcher thinks it would be a good idea and would continue her care at her home. Serafin did say that he would talk with hospice and is willing to give it a chance. We discussed the current no visitor policy at our facility. I then spoke to [place] hospice nurse. She reports that she will talk with Serafin and caregiver via phone. At this time , I will admit the patient observation status with the probability of discharge tomorrow to hospice. I can not discharge the patient today due to COVID test. This was done due to patient runny nose, congestion, drainage, fever. She also has had continued visitors from different counties that have had positive COVID. No direct contacts that caregiver is aware of. Once this test comes back and if negative will discharge to hospice. Departure - Departure Time of Disposition: 10:13 Disposition: Refer to Observation Condition: Poor Clinical Impression: Influenza B, End of life care RLL pneumonia Qualifiers: Pneumonia type: due to unspecified organism Qualified Code(s): J18.9 - Pneumonia, unspecified organism - Discharge Information *PRESCRIPTION DRUG MONITORING PROGRAM REVIEWED*: Not Applicable *COPY OF PRESCRIPTION DRUG MONITORING REPORT IN PATIENT ELVIN: Not Applicable Forms: ED Department Discharge Sepsis Event Note - Focused Exam Date Exam was Performed: 08/05/19 Time Exam was Performed: 10:27 - My Orders Last 24 Hours: My Active Orders 08/05/19 09:10 Chest 1V Frontal [CR] Stat Blood Culture x2 Reflex Set [OM.PC] Stat 08/05/19 09:12 Isolation [COMM] Routine 08/05/19 09:16 UA W/MICROSCOPIC [URIN] Stat 08/05/19 09:20 CULTURE BLOOD [BC] Stat 08/05/19 09:25 CULTURE BLOOD [BC] Stat 08/05/19 09:40 CORONAVIRUS COVID-19 PCR PHL Stat - Assessment/Plan Last 24 Hours: My Active Orders 08/05/19 09:10 Chest 1V Frontal [CR] Stat Blood Culture x2 Reflex Set [OM.PC] Stat 08/05/19 09:12 Isolation [COMM] Routine 08/05/19 09:16 UA W/MICROSCOPIC [URIN] Stat 08/05/19 09:20 CULTURE BLOOD [BC] Stat 08/05/19 09:25 CULTURE BLOOD [BC] Stat 08/05/19 09:40 CORONAVIRUS COVID-19 PCR PHL Stat Plan: PLEASE SEE RN NOTE FOR PFSH. PLEASE SEE ER H&P FOR ADMIT H&P. This patient may not live during this admit. Hopefully will discharge tomorrow to Hospice. Palliative Care.
[2019-08-05 10:00] LABS: CHLORIDE,CL 95 mEq/L (98-106)
[2019-08-05 10:11] LABS: SODIUM,NA 131 mEq/L (136-145)
[2019-08-05] MEDS ORDERED: Acetaminophen 650 MG Supp RECTAL PRN (11:41)
[2019-08-05] MEDS ORDERED: Ondansetron 4 MG/2 ML SDV IV PRN (11:41)
[2019-08-05] MEDS ORDERED: Sodium Chloride 0.9% 500 ML IV ONE (11:41)
[2019-08-05] MEDS ORDERED: Potassium Chloride 10 MEQ Tab.ER PO ONE (12:00)
[2019-08-05] MEDS: Enoxaparin 40 MG/0.4 ML Syringe SUBCUT SCH (12:42)
[2019-08-05] MEDS: Oseltamivir 75 MG Cap PO SCH ×2 (12:43→19:38)
[2019-08-05] MEDS: [UNRECOGNIZED DRUG - OTHER] PO SCH (19:37)
[2019-08-05] MEDS: QUEtiapine 25 MG Tab PO SCH (19:37)
[2019-08-05] MEDS: B LON PO SCH (19:37)
[2019-08-05] MEDS: Memantine 10 MG Tab PO SCH (19:38)
[2019-08-05] MEDS: Acetaminophen 325 MG Tab PO PRN (23:34)
[2019-08-06] MEDS: Levothyroxine 100 MCG Tab PO SCH (06:28)
[2019-08-06 07:46] LABS: CHLORIDE,CL 101 mEq/L (98-106); SODIUM,NA 134 mEq/L (136-145)
[2019-08-06] MEDS: Oseltamivir 75 MG Cap PO SCH ×2 (08:15→19:42)
[2019-08-06] MEDS: QUEtiapine 25 MG Tab PO SCH ×2 (08:15→19:41)
[2019-08-06] MEDS: Memantine 10 MG Tab PO SCH ×2 (08:16→19:42)
[2019-08-06] MEDS: B LON PO SCH ×2 (08:16→19:40)
[2019-08-06] MEDS: [UNRECOGNIZED DRUG - OTHER] PO SCH ×2 (08:16→19:40)
[2019-08-06] MEDS: Enoxaparin 40 MG/0.4 ML Syringe SUBCUT SCH (13:51)
--- NOTE | 2019-08-06 16:53 | PCM.PN ---
- General Info Date of Service: 08/06/19 Functional Status: Reports: Pain Controlled, Tolerating Diet (eating very well today 100%), Urinating (Pom[place] in place). Denies: Ambulating - Review of Systems General: Denies: Fever (no Fever today) HEENT: Reports: Sinus Congestion, Rhinitis Pulmonary: Reports: No Symptoms Cardiovascular: Reports: No Symptoms Gastrointestinal: Reports: No Symptoms Genitourinary: Reports: No Symptoms Musculoskeletal: Reports: No Symptoms Skin: Reports: No Symptoms Neurological: Reports: Other (severe dementia) Psychiatric: Reports: No Symptoms - Patient Data Vitals - Most Recent: Last Vital Signs Temp 98.2 F 08/06/19 12:00 Pulse 75 08/06/19 12:00 Resp 18 08/06/19 12:00 BP 98/59 L 08/06/19 12:00 Pulse Ox 99 08/06/19 12:00 Weight - Most Recent: 146 lb I&O - Last 24 Hours: Intake & Output 08/06/19 08/06/19 08/06/19 06:59 14:59 22:59 Output Total 225 Balance -225 Lab Results Last 24 Hours: Laboratory Results - last 24 hr 08/06/19 08/06/19 Range/Units 07:25 07:25 WBC 5.4 (5.0-10.0) 10^3/uL RBC 2.83 L (4.00-5.50) 10^6/uL Hgb 8.2 L (12.0-16.0) g/dL Hct 25.5 L (37.0-47.0) % MCV 90.1 (82.0-94.0) fL MCH 29.0 (27.0-32.0) pg MCHC 32.2 L (33.0-38.0) g/dL RDW Coeff of Malini 13.7 (11.0-15.0) % Plt Count 372 (150-400) 10^3/uL Neut % (Auto) 76.7 (35-85) % Lymph % (Auto) 16.9 (10-55) % [place] % (Auto) 4.4 (0-16) % Eos % (Auto) 1.8 (0-5) % Baso % (Auto) 0.2 (0-3) % Neut # (Auto) 4.17 (1.80-7.00) 10^3/uL Lymph # (Auto) 0.92 L (1.00-4.80) 10^3/uL Charlotte # (Auto) 0.24 (0.00-0.80) 10^3/uL Eos # (Auto) 0.10 (0.00-0.45) 10^3/uL Baso # (Auto) 0.01 10^3/uL Sodium 134 L (136-145) mEq/L Potassium 3.5 (3.5-5.0) mEq/L Chloride 101 (98-106) mEq/L Carbon Dioxide 29 (21-32) mmol/L BUN 20 H (7-18) mg/dL Creatinine 0.7 (0.6-1.0) mg/dL Est Cr Clr Drug Dosing 78.67 mL/min Estimated GFR (MDRD) > 60 (>=60) mL/min Glucose 83 (75-99) mg/dL Calcium 7.6 L (8.4-10.1) mg/dL C-Reactive Protein 17.4 H (0.2-0.8) mg/dL José Results Last 24 Hours: Microbiology 08/05/19 09:25 Aerobic Blood Culture - Preliminary Blood - Venous - Lab Draw NO GROWTH AFTER 1 DAY Anaerobic Blood Culture - Preliminary NO GROWTH AFTER 1 DAY 08/05/19 09:20 Aerobic Blood Culture - Preliminary Blood - Venous NO GROWTH AFTER 1 DAY Anaerobic Blood Culture - Preliminary NO GROWTH AFTER 1 DAY Med Orders - Current: Current Medications Acetaminophen (Tylenol) 650 mg RECTAL Q4H PRN PRN Reason: Mild pain/fever Last Admin: 08/05/19 16:16 Dose: 650 mg Acetaminophen (Tylenol) 650 mg PO Q4H PRN PRN Reason: Fever Last Admin: 08/05/19 23:34 Dose: 650 mg Enoxaparin Sodium (Lovenox) 40 mg SUBCUT Q24H [facility] Last Admin: 08/06/19 13:51 Dose: 40 mg Levothyroxine Sodium (Synthroid) 100 mcg PO ACBREAKFAST [facility] Last Admin: 08/06/19 06:28 Dose: 100 mcg Memantine (Namenda) 10 mg PO BID [facility] Last Admin: 08/06/19 08:16 Dose: 10 mg B Infantis/B Ani/B Colby/B Bifid [ Probiotic 4x Caplet] Own Med 1 tab PO BID [facility] Last Admin: 08/06/19 08:16 Dose: 1 tab Ondansetron HCl (Zofran) 4 mg IV Q6H PRN PRN Reason: Nausea/Vomiting Oseltamivir Phosphate (Tamiflu) 75 mg PO BID [facility] Last Admin: 08/06/19 08:15 Dose: 75 mg Quetiapine Fumarate (Seroquel) 25 mg PO BID [facility] Last Admin: 08/06/19 08:15 Dose: 25 mg Discontinued Medications Sodium Chloride (Normal Saline) 500 mls @ 999 mls/hr IV .BOLUS ONE Stop: 08/05/19 12:11 Last Admin: 08/05/19 12:41 Dose: 999 mls/hr Potassium Chloride (Klor-Con 10) 40 meq PO ONETIME ONE Stop: 08/05/19 12:01 Last Admin: 08/05/19 12:51 Dose: 40 meq - Exam General: Alert, Other (severe dementia). No: Oriented Neck: Supple, Trachea Midline Lungs: Crackles (BLL scant) Cardiovascular: Regular Rate, Regular Rhythm GI/Abdominal Exam: Soft, Non-Tender Back Exam: Normal Inspection Extremities: Normal Inspection Peripheral Pulses: 2+: Radial (L), Radial (R), Posterior Tibial (L), Posterior Tibial (R), Dorsalis Pedis (L), Dorsalis Pedis (R) Skin: Warm, Dry, Intact Neurological: Other (Nonverbal to me. Did say "yes" to RN. Does eye open and follow me in the room. Severe dementia. ) Psy/Mental Status: Alert Sepsis Event Note - Evaluation Sepsis Screening Result: No Definite Risk - Focused Exam Vital Signs: Vital Signs Temp Pulse Resp BP Pulse Ox 08/06/19 12:00 98.2 F 75 18 98/59 L 99 08/06/19 08:00 98.3 F 65 16 99/67 99 Date Exam was Performed: 08/06/19 Time Exam was Performed: 16:42 - Problem List Review Problem List Initiated/Reviewed/Updated: Yes - My Orders Last 24 Hours: My Active Orders 08/05/19 20:00 B Infantis/B Ani/B Colby/B Bifid [Probiotic 4X Caplet] 1 tab PO BID Memantine [Namenda] 10 mg PO BID QUEtiapine [SEROqueL] 25 mg PO BID 08/05/19 22:02 Acetaminophen [Tylenol] 650 mg PO Q4H PRN 08/06/19 07:00 Levothyroxine [Synthroid] 100 mcg PO ACBREAKFAST - Plan Plan:: 08/06/2019 1630 I was hoping the COVID-19 test would be back on this patient today and could discharge the patient home to resident care coordinator and initiate Hospice care. However, I do not have this resulted at this time. Therefore, plan is to continue patient admit and discharge once the COVID is resulted, hopefully tomorrow. The patient was admitted for influenza, generalized weakness, and palliative care. The patient today has be sleeping a lot per RN. When I enter the room, the patient is awake and alert. She eye opens and follows me in the room. She is nonverbal to me. Although RN says she did say "yes" earlier today. RN also reports the patient has been actually eating finger foods by herself without difficulty and eating 100%. Patient has not been febrile today. Patient labs yesterday were wbc 9.4, na 131, k 3.0, crp 19.8. Today labs are hgb 8.2 due to fluids, na 134, k 3.5, crp 17.4. The patient CXR shows chronic RLL effusion, but no focal infiltrates or pulmonary edema. Will continue Tamiflu and admit. She was given a 500ml bolus of NS yesterday, labs have improved today. No changes, continue admit, Hospice Discharge once have COVID test if negative. Continue COVID room with precautions.
[2019-08-06] MEDS: Acetaminophen 325 MG Tab PO PRN (19:43)
[2019-08-07] MEDS: Levothyroxine 100 MCG Tab PO SCH (06:56)
[2019-08-07] MEDS: Memantine 10 MG Tab PO SCH (07:46)
[2019-08-07] MEDS: Oseltamivir 75 MG Cap PO SCH (07:46)
[2019-08-07] MEDS: QUEtiapine 25 MG Tab PO SCH (07:46)
[2019-08-07] MEDS: B LON PO SCH (07:47)
[2019-08-07] MEDS: [UNRECOGNIZED DRUG - OTHER] PO SCH (07:47)
--- NOTE | 2019-08-07 11:18 | DISCH ---
ADMISSION DIAGNOSES: 1. Pneumonia. 2. Advanced Alzheimer disease. 3. Hypothyroidism. DISCHARGE DIAGNOSIS: 1. PNEUMONIA. 2. ADVANCED ALZHEIMER DISEASE. 3. HYPOTHYROIDISM. HISTORY: The patient presented on the date of admission with weakness and fever. She apparently had a cough. She had previously been living at her home with her who is in his 90s, and she gotten to the point where he could not take care of her. She has been living with friends, where he goes to see her. She suffers from advanced Alzheimer dementia and has had a steady decline over the last 2 years. She was brought in for weakness, fatigue, fevers, and a cough. Bharat Quesada evaluated her in the emergency room where her lab work was reviewed, and she ended up testing positive for influenza A. She was admitted for observation, given IV fluids, and started on Tamiflu. HOSPITAL COURSE: The patient has done reasonably well since being here. She has essentially remained afebrile her entire stay. She has had no vital sign irregularities. She initially required some supplemental oxygen, now she is on room air and saturating in the mid to high 90s. Her eating is poor. She looks at you when speaking, but she does not verbalize. Discussion with family, in this case her , regarding hospice was entertained; he agrees. She is going to go home to her prior living arrangement with family friends, and Hospice will be involved in her end-of-life cares. She has a life expectancy of less than 6 months given the advanced dementia she suffers from and her now steady decline in weight and eating. This is her third day of Tamiflu. She will go home on a finished course. She does not require any other supplemental medications. Will continue all of her other cares, and Hospice will be consulted for indication of Alzheimer dementia. COMPLICATIONS: During her stay were none. CONSULTATIONS: None. DISPOSITION: Discharged home with hospice cares. ROGER /[id number]
== END 2019-08-07 14:00 | disposition hospice, home (50) ==
LOC: CC.ED 08:17 → CC.MS 10:30 → UNDOADMOB 10:30 → CC.MS 10:37
PROVIDERS: ADMIT Nurse Practitioner; ATTEND Family Medicine
DX: J10.01 Influenza due to other identified influenza virus with the same other identified influenza virus pneumonia (principal); E03.9 Hypothyroidism, unspecified; G30.9 Alzheimer's disease, unspecified; F02.80 Dementia in other diseases classified elsewhere, unspecified severity, without behavioral disturbance, psychotic disturbance, mood disturbance, and anxiety; Z51.5 Encounter for palliative care; Z20.828 Contact with and (suspected) exposure to other viral communicable diseases; Z79.890 Hormone replacement therapy; Z79.899 Other long term (current) drug therapy
CPT/HCPCS: 36415; 51702; 71045; 80048; 80053; 81001; 83605; 85025; 86140; 87040; 87804; 96360; 96372; 99217; 99220; 99225; 99285; A9270; G0378; J1650; J7030; U0002